=== PATIENT | male | born 1980 ===

== ENCOUNTER 2023-03-07 09:10 | Outpatient (AMB) | payer BC, SELFPAY ==
[2023-03-07 09:13] VITALS: BP 124/74; PULSE 85; RESP 13; TEMP 36.4; O2SAT 99; BMI 33.0
--- NOTE | 2023-03-07 09:13 | A.OFFPC_ITS ---
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 Relocated to [facility] 8 years ago Last office visit/CPE: Several years ago Last blood work: Several years ago Medications: None Acute issue(s): None PMHx: None SurgHx: None FHx: None SocHx: Nonsmoker. Drinks 2-3 beers on weekends. No recreation drug use Patient is Citizen Of [place] speaking only. 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 Cognitive needs: No Hearing needs: No Vision needs: No Questionnaire PHQ-9 Over the last 2 weeks, how often have you been bothered by any of the following problems? 1. Little interest or pleasure in doing things: not at all 2. Feeling down, depressed, or hopeless: not at all 3. Trouble falling or staying asleep, or sleeping too much: not at all 4. Feeling tired or having little energy: not at all 5. Poor appetite or overeating: not at all 6. Feeling bad about yourself - or that you are a failure or have let yourself or your family down: not at all 7. Trouble concentrating on things, such as reading the newspaper or watching television: not at all 8. Moving or speaking so slowly that other people could have noticed. Or the opposite - being so fidgety or restless that you have been moving around a lot more than usual: not at all 9. Thoughts that you would be better off or of hurting yourself in some way: not at all Total score: 0 Depression Screening Interpretation: Negative Depression Screening Done: Yes 02953 - PHQ-9 Billing: Yes Source: Developed by Drs. Stephen Moscoso, Agatha Ibrahim, Lars Mitchell and colleagues, with an educational renita from [employer]. Thrive Questionnaire Date Thrive assessed: 03/07/23 I am a: Patient What is your living situation today?: I have a steady place to live Within the past 12 months, did the food you bought not last and you didn't have the money to get more?: Never true Within the past 12 months, did you worry whether your food would run out before you got money to buy more?: Never true Do you have trouble paying for medicines?: No Do you have trouble getting transportation to medical appointments?: No Do you have trouble paying your heating and electricity bill?: No Do you have trouble taking care of your child, family member or friend?: No Do you have trouble with day-to-day activities such as bathing, preparing meals, shopping, managing finances, etc.?: No Are you currently unemployed and looking for a job?: No Are you interested in more education?: No Please select the resources that you would like help with: None Currently or been in a relationship where the following occur: no concerns reported AUDIT C Alcohol Use Questionnaire (AUDIT-C) 1. How often do you have a drink containing alcohol?: 2-3 times a week 2. How many drinks containing alcohol do you have on a typical day when you are drinking?: 1 or 2 3. How often do you have six or more drinks on one occasion?: Never Total Score: 3 SANDY-7 AMB Questionnaire SANDY-7 Date SANDY - 7 assessed: 03/07/23 Feeling nervous, anxious, or on edge: 0 = Not at all Not being able to stop or control worryin = Not at all Worrying too much about different things: 0 = Not at all Trouble relaxin = Not at all Being so restless that it is hard to sit still: 0 = Not at all Becoming easily annoyed or irritable: 0 = Not at all Feeling afraid as if something awful might happen: 0 = Not at all Total SANDY-7 score (0-4 normal; 5-9 mild; 10-14 moderate; 15-21 severe): 0 Source: Developed by Drs. Stephen Moscoso, Agatha Ibrahim, Lars Mitchell and colleagues, with an educational renita from [employer]. SANDY-7 Assessment Billing SANDY-7 Assessment Tool: SANDY-7 Assessment 31381 Review of Systems Const Details: Denies chills, Denies fatigue, Denies fever(s), Denies headache(s) and Denies weakness HEENT Denies change in vision, Denies dizziness, Denies headache(s), Denies hearing loss, Denies nasal congestion, Denies sinus pain, Denies sinus pressure and Denies sore throat Card Denies chest pain, Denies lightheadedness, Denies dyspnea and Denies other (palpitations) Resp Denies cough, Denies dyspnea and Denies wheezing GI Denies abdominal pain, Denies melena, Denies hematochezia, Denies change in bowel habits, Denies dyspepsia and Denies nausea Denies hematuria and Denies dysuria Musc Denies abnormal gait, Denies myalgias, Denies arthralgias, Denies numbness and Denies tingling Skin/Breast Denies rash, Denies unusual bruising and Denies wounds Neuro Denies abnormal gait, Denies dizziness, Denies headache(s), Denies memory loss, Denies numbness, Denies Sensory deficit (Neuro), Denies tingling and Denies weakness Psych Denies anxiety, Denies depression and Denies memory loss Endo Denies cold intolerance, Denies fatigue, Denies heat intolerance, Denies polydipsia and Denies polyuria Link/Lymph Denies easy bleeding and Denies easy bruising Aller/Immun Denies wheezing Physical exam (Primary Care) Vital Signs: Last Vital Signs Temp 97.6 F 03/07/23 09:13 Pulse 85 03/07/23 09:13 Resp 13 03/07/23 09:13 BP 124/74 03/07/23 09:13 Pulse Ox 99 03/07/23 09:13 Oxygen Delivery Method Room Air 03/07/23 09:13 BMI result Body Mass Index 33.0 Tobacco/Smoking Status: Tobacco use Status Tobacco use date assessed 03/07/23 03/07/23 09:25 Patient Tobacco Use Status Never used Tobacco 03/07/23 09:25 e-Cigarette/Vaping Use Never Used 03/07/23 09:25 PHQ-9: PHQ-9 Score PHQ-9: Total score 0 03/07/23 09:32 Depression Screening Interpretation: Negative Thrive Assessment: Date of Thrive Assessment Date Thrive assessed 03/07/23 03/07/23 09:32 Currently or been in a relationship where the following occur: no concerns reported Const Other: General: no acute distress, well developed, alert and awake Nutritional Appearance: well nourished Orientation/consciousness: patient oriented x3 HENMT Head: Yes normocephalic and Yes atraumatic Ears: hearing grossly normal bilaterally and TM's normal bilaterally General nose exam: Normal external nose present and Normal nares present Mouth: Normal oral and palatal mucosa present and moist mucous membranes Teeth and gingiva: dentition normal Throat: Yes oropharynx normal Eyes Pupils: Equal, round and reactive pupils present and Pupil accommodation reflex normal EOM: EOMs intact bilaterally Neck Neck: Yes normal visual inspection, Yes no lymphadenopathy and Yes trachea midline Thyroid: Thyroid normal Carotids: no bruits Lymphatic: no lymphadenopathy noted Chest Chest palpation & inspection: normal inspection of the chest Resp Effort & Inspection: normal respiratory effort Auscultation: clear to auscultation bilaterally Cardio Rate: regular rate Rhythm: regular rhythm Heart sounds: S1 normal heart sound present, S2 normal heart sound present, no gallops, no murmurs and no rubs Bruits: no abdominal aortic bruits and no carotid bruits GI Palpation (GI): No Abdominal aortic bruit present, Soft to palpation, nontender, No hepatosplenomegaly present and No Rebound tenderness present Auscultation: normal bowel sounds General: Yes no CVA tenderness Back/Spine/Pelvis Back: no CVA tenderness Cervical Spine: cervical ROM normal and No Cervical spine tenderness Thoracic/Lumbar Spine: thoraco-lumbar ROM normal, No pain with thoraco-lumbar ROM, No thoracic spinal tenderness and No lumbar spinal tenderness Skin General: warm and dry. Normal skin color. Normal skin turgor Lesions: no lesions Rashes: no rashes Trauma: no lacerations or abrasions Wounds: no wounds Nails: normal Neuro General: patient oriented x3, gait normal and CN's II-XI intact bilaterally Cranial nerves: Yes Equal, round and reactive pupils present Cognition (Neuro): normal cognition Gait exam (Neuro): Normal gait present Motor exam (neuro): 5/5 motor strength present throughout Sensory Exam: No Sensory deficit (Neuro) Deep tendon reflexes (DTR's): Right patellar reflex intensity grade: 2+ and Left patellar reflex intensity grade: 2+ Extrem General: Yes normal to inspection, No edema and No calf tenderness Psych Appearance: grossly normal Affect: normal affect Attitude: cooperative Thought process: Normal thought process present Assessment and Plan Assessment & Plan (1) Normal physical examination, routine: Code(s): Z00.00 - Encounter for general adult medical examination without abnormal findings Plan: No significant physical restrictions or limitations noted Advised to get lab work done and schedule a telehealth visit for labs review Return with symptoms or concerns Verbalized understanding and agreed with treatment plan (2) Obesity (BMI 30.0-34.9): Code(s): E66.9 - Obesity, unspecified Plan: He weighs 217 lb, BMI is 33.0 Healthy diet and routine exercise encouraged. Advised to avoid processed foods Follow-up with symptoms or concerns Verbalized understanding and agreed with treatment plan (3) Laboratory tests ordered as part of a complete physical exam (CPE): Code(s): Z00.00 - Encounter for general adult medical examination without abnormal findings Plan: Fasting labs ordered as part of a complete physical exam. Advised to fast for at least 10 hours before getting labs drawn. May drink water Verbalized understanding and agreed with treatment plan. Orders: Orders 2 Complete Blood Count Auto Diff Today Z00.00 - Encounter for general adult medical examination without abnormal findings Lipid Panel Today Z00.00 - Encounter for general adult medical examination without abnormal findings Comprehensive [place]. Panel Fast Today Z00.00 - Encounter for general adult medical examination without abnormal findings TSH reflex Free T4 Today Z00.00 - Encounter for general adult medical examination without abnormal findings UA CC w/rflx Micro + Cult Today Z00.00 - Encounter for general adult medical examination without abnormal findings Coding Level of Care Code New Pt Prev Care 40-64y(18766) Diagnoses Normal physical examination, routine Z00.00 Obesity (BMI 30.0-34.9) E66.9 Laboratory tests ordered as part of a complete physical exam (CPE) Z00.00 Additional Codes SANDY-7 Assessment Billing - SANDY-7 Assessment Tool: SANDY-7 Assessment 27846 ([id number])
== END 2023-03-07 10:06 | disposition home or self-care (01) ==
PROVIDERS: PCP Nurse Practitioner Family; Visit Provider Nurse Practitioner Family
DX: Z00.00 Encounter for general adult medical examination without abnormal findings (principal); E66.9 Obesity, unspecified; Z68.33 Body mass index [BMI] 33.0-33.9, adult
CPT/HCPCS: 99386

== ENCOUNTER 2023-03-07 10:08 | Outpatient (REF) | payer BC, SELFPAY ==
[2023-03-07 11:20] LABS: Appearance Urine Clear; Color Urine Yellow; Glucose Urine UA Negative (Negative); Leukocyte Esterase Urine Negative (Negative); Nitrite Urine Negative (Negative); PH 6.5 (5.0-9.0); Specific Gravity - Urine 1.025 (1.005-1.025); Urine Blood Negative (Negative); Urine Ketones Negative (Negative); Urine Protein Negative (Neg-Trace)
[2023-03-07 11:21] LABS: MANUAL DIFF FLAG NO
[2023-03-07 11:30] LABS: Basophils Absolute Auto 0.1 X10*3/uL (0.0-0.2); Basophils Percent Auto 0.5 % (0-2); Eosinophils Absolute Auto 0.1 X10*3/uL (0.0-0.4); Eosinophils Percent Auto 1.4 % (0-4); Hematocrit 45.4 % (42.0-52.0); Hemoglobin 15.3 g/dl (14.0-18.0); Imm Gran Abs Auto 0.03 X10*3/uL (0.00-0.03); Imm Gran Pct Auto 0.3 % (0.0-0.4); Mean Corpuscular HGB Conc 33.7 g/dl (31.0-36.0); Mean Corpuscular Hemoglobin 29.7 pg (27.0-33.0); Mean Corpuscular Volume 88.2 fL (80.0-98.0); Mean Platelet Volume 9.9 fL (9.4-12.4); Monocytes Absolute Auto 0.6 X10*3/uL (0.1-1.2); Monocytes Percent Auto 6.3 % (2-11); Neutrophils Absolute Auto 6.4 x10*3/uL (2.0-8.3); Neutrophils Percent Auto 69.5 % (45-73); Platelet Count 339 X10*3/uL (160-400); Red Blood Count 5.15 X10*6/uL (4.60-5.80); Red Cell Distribution Width 13.5 % (11.0-16.0); White Blood Count 9.2 X10*3/uL (4.8-10.8)
[2023-03-07 12:06] LABS: Alanine Aminotransferase 28 U/L (0-40); Albumin Level 4.4 g/dL (3.5-5.0); Alkaline Phosphatase 61 U/L (39-117); Anion Gap 10 (12-20); Aspartate Amino Transferase 21 U/L (5-37); Bilirubin Total 0.5 mg/dL (0.0-1.0); Blood Urea Nitrogen 14 mg/dL (9-16); Calcium 9.6 mg/dL (8.4-10.2); Carbon Dioxide 28 mmol/L (22-29); Chloride 104 mmol/L (96-108); Cholesterol 210 mg/dL (<200); Estimated Glomerular Filt Rate > 60; Glucose Fasting 89 mg/dL (60-99); HDL Cholesterol 47 mg/dL (>40); LDL Cholesterol Calculated 149 mg/dL (<100); Potassium 4.4 mmol/L (3.3-5.1); Sodium 138 mmol/L (135-145); Total Protein 8.3 g/dL (6.5-8.0); Triglycerides 72 mg/dL (<150)
[2023-03-07 12:22] LABS: TSH reflex Free T4 1.54 uIU/mL (0.32-4.0)
== END 2023-03-07 10:09 | disposition home or self-care (01) ==
LOC: HO.WFDLDS 10:08
PROVIDERS: Visit Provider Nurse Practitioner Family
DX: Z00.00 Encounter for general adult medical examination without abnormal findings (principal)
CPT/HCPCS: 36415; 80053; 80061; 81003; 84443; 85025

== ENCOUNTER 2024-01-12 14:50 | Outpatient (AMB) | payer OTHER, SELFPAY ==
--- NOTE | 2024-01-12 14:55 | A.OFFPC_ITS ---
Vital Signs 01/12/24 14:58 Height 5 ft 8 in Weight 215 lb 8 oz BMI 32.8 BP 108/68 Blood Pressure Location Rt brachial Position Sitting Respiration 16 Pulse 78 Pulse Source Pulse Oximeter Temp 98.2 F Temp Source Oral Pulse Oximetry (%) 97 Oxygen Delivery Method Room Air Intake Visit Reasons: Resched from 01/08: Stomach pain Intake Note: patient here c/o stomach pain Companion Caregiver Required: No Allergies No Known Allergies Allergy (Verified 01/12/24 15:12) Medication List - Last Reconciled 01/12/24 by Cindy Leiva CNP No Known Home Meds Tobacco use date assessed: 01/12/24 Dental Screening Dental Screen Date: 01/12/24 Did you have a dental visit in the last 12 months?: No Did you have a dental problem in the last 6 months where you did not have access to dental care?: No Was dental information given to patient?: Yes HPI HPI Comments History of Present Illness Details 43-year-old [place]-speaking male presen nicol with complaints of epigastric pain for the past 8 days. He is unable to described the pain. No associated symptoms. He has tried Pepto-Bismol with significant relief. He notes that drink water, eating more vegetables, and drinking less alcohol provides relief. He drinks 3-4 beers on Saturdays and Sundays. Food does not increase his pain. He denies consuming fried or greasy food. No changes in bowel habits. No symptoms at this time. Interpretation by professional label designer. 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 Cognitive needs: No Hearing needs: No Vision needs: No Questionnaire PHQ-9 Over the last 2 weeks, how often have you been bothered by any of the following problems? 1. Little interest or pleasure in doing things: not at all 2. Feeling down, depressed, or hopeless: not at all 3. Trouble falling or staying asleep, or sleeping too much: not at all 4. Feeling tired or having little energy: not at all 5. Poor appetite or overeating: not at all 6. Feeling bad about yourself - or that you are a failure or have let yourself or your family down: not at all 7. Trouble concentrating on things, such as reading the newspaper or watching television: not at all 8. Moving or speaking so slowly that other people could have noticed. Or the opposite - being so fidgety or restless that you have been moving around a lot more than usual: not at all 9. Thoughts that you would be better off or of hurting yourself in some way: not at all Total score: 0 Source: Developed by Drs. Stephen Moscoso, Agatha Ibrahim, Lars Mitchell and colleagues, with an educational renita from [employer]. Thrive Questionnaire Date Thrive assessed: 01/08/24 I am a: Patient What is your living situation today?: I have a steady place to live Within the past 12 months, did the food you bought not last and you didn't have the money to get more?: I choose not to answer this question Within the past 12 months, did you worry whether your food would run out before you got money to buy more?: Never true Do you have trouble paying for medicines?: No Do you have trouble getting transportation to medical appointments?: No Do you have trouble paying your heating and electricity bill?: No Do you have trouble taking care of your child, family member or friend?: No Do you have trouble with day-to-day activities such as bathing, preparing meals, shopping, managing finances, etc.?: No Are you currently unemployed and looking for a job?: No Are you interested in more education?: Yes Please select the resources that you would like help with: None Currently or been in a relationship where the following occur: No concerns reported THRIVE Score: 0 SANDY-7 AMB Questionnaire SANDY-7 Date SANDY - 7 assessed: 03/07/23 Source: Developed by Drs. Stephen Moscoso, Agatha Ibrahim, Lars Mitchell and colleagues, with an educational renita from [employer]. Review of Systems Const Details: Const Denies chills, Denies fatigue, Denies fever(s), Denies headache(s) and Denies weakness ENT Denies dizziness and Denies headache(s) Card Denies chest pain, Denies lightheadedness, Denies dyspnea and Denies other (Palpitations) Resp Denies cough, Denies dyspnea, Denies wheezing and Denies other ( shortness of breath) GI Reports as per HPI Denies hematuria and Denies dysuria Musc Denies abnormal gait, Denies myalgias, Denies arthralgias, Denies numbness and Denies tingling Skin/Breast Denies rash, Denies unusual bruising and Denies wounds Neuro Denies abnormal gait, Denies dizziness, Denies headache(s), Denies memory loss, Denies numbness, Denies Sensory deficit (Neuro), Denies tingling and Denies weakness Psych Denies anxiety, Denies depression, Denies memory loss Endo Denies cold intolerance, Denies fatigue, Denies heat intolerance, Denies polydipsia and Denies polyuria Aller/Immun Denies wheezing Physical exam (Primary Care) Tobacco/Smoking Status: Tobacco use Status Tobacco use date assessed 03/07/23 03/07/23 09:25 Patient Tobacco Use Status Never used Tobacco 03/07/23 09:25 e-Cigarette/Vaping Use Never Used 03/07/23 09:25 Thrive Assessment: Date of Thrive Assessment Date Thrive assessed 01/08/24 01/09/24 08:52 Currently or been in a relationship where the following occur: No concerns reported Const Other: General: no acute distress and well developed Nutritional Appearance: well nourished Orientation/consciousness: patient oriented x3 HENMT Head: Yes normocephalic and Yes atraumatic Eyes General: appearance normal, both eyes and all related structures Pupils: Equal, round and reactive pupils present EOM: EOMs intact bilaterally Resp Effort & Inspection: normal respiratory effort Auscultation: clear to auscultation bilaterally Cardio Rate: regular rate Rhythm: regular rhythm Heart sounds: S1 normal heart sound present, S2 normal heart sound present, no gallops, no murmurs and no rubs GI Palpation (GI): No Abdominal aortic bruit present, Soft to palpation, nontender, No hepatosplenomegaly present and No Rebound tenderness present Auscultation: normal bowel sounds General: Yes no CVA tenderness Back/Spine/Pelvis Back: no CVA tenderness Extrem General: Yes normal to inspection, No edema and No calf tenderness Skin General: warm and dry. Normal skin color. Normal skin turgor Neuro General: patient oriented x3, gait normal and no focal neuro deficit Cranial nerves: Yes Equal, round and reactive pupils present Cognition (Neuro): normal cognition Gait exam (Neuro): Normal gait present Sensory Exam: No Sensory deficit (Neuro) Psych Appearance: grossly normal Affect: normal affect Attitude: cooperative Thought process: Normal thought process present Coding Level of Care Code Est Pt Level 3 (56437) Diagnoses GERD (gastroesophageal reflux disease) K21.9 Laboratory tests ordered as part of a complete physical exam (CPE) Z00.00 Assessment & Plan Assessment & Plan (1) GERD (gastroesophageal reflux disease): Code(s): K21.9 - Gastro-esophageal reflux disease without esophagitis Category: Medical Plan: Reports intermittent epigastric pain x8 days, responsive to Pepto-Bismol. Improves with eating vegetables, increasing water intake, and limiting alcohol consumption. No associated symptoms. No acute symptoms at this time. Will order omeprazole 20 mg daily. Advised to take as prescribed. Instructed on the risks, benefits, and potential adverse reactions of the medication. Advised to follow- up for an extended physical exam in 2 months or return sooner with worsening or new symptoms. Verbalized understanding and agreed with treatment plan. (2) Laboratory tests ordered as part of a complete physical exam (CPE): Code(s): Z00.00 - Encounter for general adult medical examination without abnormal findings Category: Medical Plan: Fasting labs ordered as part of a complete physical exam. Advised to fast for at least 10 hours before getting labs drawn. May drink water Verbalized understanding and agreed with treatment plan. Orders: Orders Lipid Panel Today Z00.00 - Encounter for general adult medical examination without abnormal findings TSH reflex Free T4 Today Z00.00 - Encounter for general adult medical examination without abnormal findings UA CC w/rflx Micro + Cult Today Z00.00 - Encounter for general adult medical examination without abnormal findings Complete Blood Count Auto Diff Today Z00.00 - Encounter for general adult medical examination without abnormal findings Comprehensive [place]. Panel Fast Today Z00.00 - Encounter for general adult medical examination without abnormal findings Microalbumin, Random (w Creat) Today Z00.00 - Encounter for general adult medical examination without abnormal findings Medications: New omeprazole 20 mg PO DAILY 30 days 30 caps 2RF
[2024-01-12 14:58] VITALS: BP 108/68; PULSE 78; RESP 16; TEMP 36.8; O2SAT 97; BMI 32.8
== END 2024-01-12 15:33 | disposition home or self-care (01) ==
PROVIDERS: PCP Nurse Practitioner Family; Visit Provider Nurse Practitioner Family
DX: K21.9 Gastro-esophageal reflux disease without esophagitis (principal); Z00.00 Encounter for general adult medical examination without abnormal findings

== ENCOUNTER → 2024-01-12 14:50 | Outpatient (BNVA) | payer OTHER, SELFPAY | PROVIDERS: PCP Nurse Practitioner Family; Visit Provider Nurse Practitioner Family ==

== ENCOUNTER 2024-02-06 01:35 | Observation (INO) | payer OTHER, SELFPAY ==
[2024-02-06] VITALS (7 sets, daily range): BP systolic 108–126; BP diastolic 58–86; PULSE 71–88; RESP 14–18; TEMP 36.4–36.9; O2SAT 96–100; BMI 31.9; BMI 32.0
--- NOTE | ~2024-02-06 | CT_ITS ---
EXAMINATION: CT ABDOMEN AND PELVIS WITH CONTRAST CLINICAL INFORMATION: Right upper quadrant and lower quadrant pain. COMPARISON: None available. TECHNIQUE: Multidetector volumetric images were obtained from the superior aspect of the liver through the pubic symphysis following administration 85 mL of Omnipaque 350 intravenous contrast without reported immediate complications. Sagittal and coronal reformatted images were obtained on the technologist's workstation. Oral contrast: No This CT examination was performed using dose optimization techniques as appropriate, variously including the following: *Automated exposure control *Adjustment of mA and/or kV according to patient size (this includes techniques or standardized protocols for targeted exams where dose is matched to indication/reason for exam; i.e. extremities or head) *Use of iterative reconstruction technique DLP: 733 mGy-cm FINDINGS: LUNG BASES: Subsegmental atelectasis, lung bases. LIVER, GALLBLADDER, AND BILIARY TREE: Liver measures 15 cm. No focal mass. Portal vein and hepatic veins are patent. Intrahepatic portion of the IVC is patent. An edematous gallbladder wall and mucosal enhancement. No discrete calcification. Common bile duct measures 6 mm. PANCREAS: No focal mass. No peripancreatic fluid collection. No main pancreatic ductal dilatation. SPLEEN: 11 cm. No focal mass. ADRENAL GLANDS: No nodular lesions. KIDNEYS AND URETERS: Subcentimeter low density in the midportion/upper pole left kidney. No enhancing renal mass. No hydronephrosis. Subcentimeter hypodensity in the upper pole right kidney.. BLADDER: Fluid-filled. GASTROINTESTINAL TRACT: Abundant stool, large intestine. No intestinal obstruction pattern. Collapsed splenic colonic flexure versus peristalsis. Appendix is normal. No ascites. No pneumoperitoneum. No pneumatosis intestinalis. ABDOMINAL WALL: Small fat-containing umbilical hernia. LYMPH NODES: No lymphadenopathy. VASCULAR: No aneurysm or dissection, abdominal aorta. PELVIC VISCERA: Prostate gland and seminal vesicles are not enlarged. OSSEOUS STRUCTURES: Multilevel spondylosis without acute fracture or listhesis. No lytic or blastic lesions. CT/CT abdomen pelvis w IV con IMPRESSION: Concerning acute cholecystitis in the correct clinical settings. Fleischner guidelines were followed. Electronically signed by: Yevgeniy Pedro MD 02/06/2024 10:10 AM [facility]
--- NOTE | ~2024-02-06 | US_ITS ---
EXAMINATION: US ABDOMEN LIMITED CLINICAL INFORMATION: Right upper quadrant pain. COMPARISON: CT abdomen/pelvis done earlier the same day. TECHNIQUE: Real-time imaging of the right upper quadrant abdominal viscera. FINDINGS: PANCREAS: Unremarkable. LIVER: The liver is normal in size. The liver contour is normal. Increased hepatic parenchymal echogenicity which can be seen in the setting of steatosis. No focal hepatic lesion. There is no intrahepatic biliary duct dilatation seen. GALLBLADDER: Cholelithiasis. Gallbladder wall thickening with trace pericholecystic free fluid. Findings are consistent with acute cholecystitis. COMMON BILE DUCT: Normal in caliber measuring 0.4 cm in diameter. RIGHT KIDNEY: Normal. No hydronephrosis. No renal calculi or focal parenchymal lesions. The kidney measures 10.9 cm in maximum dimension. FREE FLUID: None. US/US abdomen limited IMPRESSION: Cholelithiasis with gallbladder wall thickening and trace pericholecystic free fluid, consistent with acute cholecystitis. Electronically signed by: Jaden Segura MD 02/06/2024 12:52 PM [facility]
[2024-02-06 01:56] LABS: MANUAL DIFF FLAG NO
[2024-02-06 02:13] LABS: Alanine Aminotransferase 32 U/L (0-40); Albumin Level 4.2 g/dL (3.5-5.0); Alkaline Phosphatase 62 U/L (39-117); Anion Gap 14 (12-20); Aspartate Amino Transferase 26 U/L (5-37); Bilirubin Total 0.3 mg/dL (0.0-1.0); Blood Urea Nitrogen 18 mg/dL (9-16); Calcium 9.6 mg/dL (8.4-10.2); Carbon Dioxide 24 mmol/L (22-29); Chloride 104 mmol/L (96-108); Creatinine Clr Calc Pharmacy 122.4; Estimated Glomerular Filt Rate > 60; Glucose Random 155 mg/dL (60-115); Lipase 15 U/L (8-78); Potassium 3.6 mmol/L (3.3-5.1); Sodium 138 mmol/L (135-145); Total Protein 7.4 g/dL (6.5-8.0)
[2024-02-06 02:15] LABS: Basophils Absolute Auto 0.1 X10*3/uL (0.0-0.2); Basophils Percent Auto 0.3 % (0-2); Eosinophils Absolute Auto 0.1 X10*3/uL (0.0-0.4); Eosinophils Percent Auto 0.7 % (0-4); Hematocrit 43.2 % (42.0-52.0); Hemoglobin 14.9 g/dl (14.0-18.0); Imm Gran Abs Auto 0.05 X10*3/uL (0.00-0.03); Imm Gran Pct Auto 0.3 % (0.0-0.4); Lymphocytes Absolute Auto 1.3 X10*3/uL (1.2-4.9); Lymphocytes Percent Auto 8.8 % (20-40); Mean Corpuscular HGB Conc 34.5 g/dl (31.0-36.0); Mean Corpuscular Hemoglobin 29.7 pg (27.0-33.0); Mean Corpuscular Volume 86.2 fL (80.0-98.0); Monocytes Absolute Auto 0.6 X10*3/uL (0.1-1.2); Monocytes Percent Auto 3.9 % (2-11); Neutrophils Absolute Auto 13.1 x10*3/uL (2.0-8.3); Platelet Count 255 X10*3/uL (160-400); Red Blood Count 5.01 X10*6/uL (4.60-5.80); White Blood Count 15.2 X10*3/uL (4.8-10.8)
[2024-02-06 05:23] LABS: Appearance Urine Clear; Color Urine Yellow; Glucose Urine UA Negative (Negative); Leukocyte Esterase Urine Negative (Negative); Nitrite Urine Negative (Negative); Specific Gravity - Urine 1.015 (1.005-1.025); Urine Blood Negative (Negative); Urine Ketones Negative (Negative); Urine Protein Negative (Neg-Trace)
[2024-02-06 05:26] LABS: Bacteria Urine None Seen (None Seen); Hyaline Casts Urine 0-2 /LPF (0-2); RBC Urine 0-2 /HPF (0-2); Squamous Epithelial Cell Urine 0-2 /HPF (0-2); WBC Urine 0-5 /HPF (0-5)
--- NOTE | 2024-02-06 07:14 | ED.GENADULT ---
HPI - General Adult General Chief complaint: Abdominal Pain Stated complaint: abdominal pain Time Seen by Provider: 02/06/24 06:49 Source: patient Mode of arrival: ambulatory Limitations: no limitations History of Present Illness ED Provider: NATHALY Chaudhry HPI narrative: 43 year old male hx of obesity, gerd, presents with epigastric/right upper quadrant pain ongoing for 10 hours. He has been getting episodes like these few times over the past month. He reports it is worse with eating greasy, spicy foods. Nothing seems to make it better. He reports when he gets the pain it is 10/10, burning/sharp, makes him bend over and hold his abdomen. He reports it has been happening more frequently recently. He reports right now pain is 10/10. He denies sick contacts. Denies fevers, chills, nausea, vomiting, diarrhea, headache, vision changes, cough, chest pain, shortness of breath Related Data Previous Rx's ?Medication ?Instructions ?Recorded omeprazole 20 mg capsule,delayed 20 mg PO DAILY 30 days #30 caps 01/12/24 release Allergies Allergy/AdvReac Type Severity Reaction Status Date / Time No Known Allergies Allergy Verified 02/06/24 01:38 Review of Systems Review of Systems: Yes all other systems are reviewed and are negative [facility] Past Medical History Attestation statement: The following information was validated with the patient. 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 Cognitive needs: No Hearing needs: No Vision needs: No Physical Exam ED Vital Signs: Vital Signs - 24 hr 02/06/24 01:36 02/06/24 04:09 11/15/24 06:28 Temperature 97.9 F 98.1 F 97.9 F Pulse Rate 79 79 88 Respiratory Rate 18 16 16 Blood Pressure 126/58 L 113/71 111/65 Pulse Oximetry 100 96 97 Oxygen Delivery Method Room Air Room Air Room Air 02/06/24 07:51 02/06/24 10:03 Temperature 97.7 F 97.7 F Pulse Rate 87 71 Respiratory Rate 18 16 Blood Pressure 112/69 108/67 Pulse Oximetry 96 98 Oxygen Delivery Method Room Air Room Air BMI result Body Mass Index 31.9 vss Appearance: Alert.? Oriented X3.? No acute distress.? Head: Normocephalic, atraumatic, no step-offs or deformities Eyes: Pupils equal, round and reactive to light.? CVS: Normal heart rate and rhythm.? Pulses normal.? Respiratory: No respiratory distress.? Breath sounds normal.? Abdomen: Soft + mild tenderness in the epigastric region and RUQ negative Grant sign. Skin: Skin warm and dry.? Normal skin color.? Normal skin turgor.? Extremities: No lower extremity edema.? No calf ttp. 5/5 strength to bilateral upper and lower extremities Back: No midline tenderness, no C-spine tenderness, full range of motion, no CVA tenderness bilaterally Neuro: Oriented X 3.? No motor deficit.? No sensory deficit. CN 2-12 intact Course Reevaluation(s) Reevaluation #1: Patient's CBC with slight white count with a shift could be reactive. Chemistry no acute findings needing intervention. UA no infection. CT abdomen and pelvis pending at this time. Time: 07:52 Reevaluation #2: Patient feeling a lot better after GI cocktail. CT abdomen pending. Time: 09:48 Reevaluation #3: CT abdomen showing acute cholecystitis. Will reach out to surgery at this time. NPO at this time Time: 10:06 Additional Reevaluation(s): Patient seen by General surgery Dr. Vargas. Who recommends giving patient overnight for observation and obtaining an ultrasound of right upper quadrant Medications Administered Discontinued Medications Generic Name Dose Route Start Last Admin Trade Name Freq PRN Reason Stop Dose Admin Al Hydroxide/Mg Hydroxide 15 ml 02/06/24 07:00 02/06/24 07:21 Magnesium Hydrox/Alum Hydrox 30 Ml Oral.Susp PO 02/06/24 07:01 15 ml ONCE ONE Administration Belladonna Alkaloids/Phenobarbital 10 ml 02/06/24 07:00 02/06/24 07:21 Phenobarb/Hyoscy/Atropine/Scop 10 Ml Elixir PO 02/06/24 07:01 10 ml ONCE ONE Administration Ceftriaxone Sodium 1 gm 02/06/24 10:03 02/06/24 10:36 Ceftriaxone Sodium 1 Gm Vial IVPUSH 02/06/24 10:04 1 gm ONCE ONE Administration Iohexol 100 ml 02/06/24 09:45 02/06/24 09:45 Iohexol 350 Mg/Ml 100 Ml Infus..Btl IV 02/06/24 09:46 85 ml ONCE ONE Administration Medical Decision Making Medical Decision Making [facility] Narrative: 0716 43 year old male presents with epigastric abdominal pain X 10-12 hours PE mild tenderness in the epigastric region and RUQ negative Grant sign. Hx and pe concerning for gastritis, GERD vs cholecystitis. Less likely cholangitis, choledocolithiasis, AAA, dissection, acute abdomen. Plan- labs, imaging, urine Differential Diagnosis Differential Diagnoses: The differential diagnosis associated with the presentation includes (Hx and pe concerning for gastritis, GERD vs cholecystitis. Less likely cholangitis, choledocolithiasis, AAA, dissection, acute abdomen.) Admission/Observation Consideration of admission/observation: Escalation of care including admission/observation considered Lab Data 02/06/24 01:53 02/06/24 01:53 Labs: Lab Results 02/06/24 02/06/24 Range/Units 01:53 05:18 WBC 15.2 H (4.8-10.8) X10*3/uL RBC 5.01 (4.60-5.80) X10*6/uL Hgb 14.9 (14.0-18.0) g/dl Hct 43.2 (42.0-52.0) % MCV 86.2 (80.0-98.0) fL MCH 29.7 (27.0-33.0) pg MCHC 34.5 (31.0-36.0) g/dl RDW 13.0 (11.0-16.0) % Plt Count 255 (160-400) X10*3/uL MPV 10.0 (9.4-12.4) fL Immature Gran % (Auto) 0.3 (0.0-0.4) % Neut % (Auto) 86.0 H (45-73) % Lymph % (Auto) 8.8 L (20-40) % [place] % (Auto) 3.9 (2-11) % Eos % (Auto) 0.7 (0-4) % Baso % (Auto) 0.3 (0-2) % Lymph # (Auto) 1.3 (1.2-4.9) X10*3/uL [place] # (Auto) 0.6 (0.1-1.2) X10*3/uL Eos # (Auto) 0.1 (0.0-0.4) X10*3/uL Baso # (Auto) 0.1 (0.0-0.2) X10*3/uL Abs Immat Gran (auto) 0.05 H (0.00-0.03) X10*3/uL Absolute Neuts (auto) 13.1 H (2.0-8.3) x10*3/uL Absolute Nucleated RBC 0.000 (0.0-0.012) X10*3/uL Nucleated RBC % (auto) 0.0 (0.0-0.2) /100WBC Sodium 138 (135-145) mmol/L Potassium 3.6 (3.3-5.1) mmol/L Chloride 104 (96-108) mmol/L Carbon Dioxide 24 (22-29) mmol/L Anion Gap 14 (12-20) BUN 18 H (9-16) mg/dL Creatinine 0.88 (0.5-1.4) mg/dL Estim Creat Clear Calc 122.4 Estimated GFR > 60 Random Glucose 155 H (60-115) mg/dL Calcium 9.6 (8.4-10.2) mg/dL Total Bilirubin 0.3 (0.0-1.0) mg/dL AST 26 (5-37) U/L ALT 32 (0-40) U/L Alkaline Phosphatase 62 (39-117) U/L Total Protein 7.4 (6.5-8.0) g/dL Albumin 4.2 (3.5-5.0) g/dL Lipase 15 (8-78) U/L Urine Color Yellow Urine Appearance Clear Urine pH 7.0 (5.0-9.0) Ur Specific [place] 1.015 (1.005-1.025) Urine Protein Negative (Neg-Trace) mg/dL Urine Glucose (UA) Negative (Negative) mg/dL Urine Ketones Negative (Negative) mg/dL Urine Blood Negative (Negative) Urine Nitrite Negative (Negative) Ur Leukocyte Esterase Negative (Negative) Urine RBC 0-2 (0-2) /HPF Urine WBC 0-5 (0-5) /HPF Ur Squamous Epith Cells 0-2 (0-2) /HPF Urine Bacteria None Seen (None Seen) Hyaline Casts 0-2 (0-2) /LPF Critical Care Time Critical Care Time Critical Care Time: Yes Total Critical Care Time: 35 Attestation: I attest to this time spent taking care of the patient, obtaining history, physical, reviewing labs, imaging, treatment of patients condition +/- specialist/hospitalist consult Discharge Plan Discharge Clinical Impression: Gastritis, Acute cholecystitis Patient Disposition: Still a Patient Additional Instructions: Take your medications as prescribed. If you were prescribed antibiotics today, it is important that you take your medication to their entirety, do not skip any doses, do not finish them early. Follow-up with your primary care provider this week. Return to the emergency department with new or worsening symptoms. Such as fevers, chills, chest pain, shortness of breath, nausea, vomiting, dizziness, headache, vision changes, lethargy In case of emergency call 911 Prescriptions: No Action omeprazole 20 mg capsule,delayed release(DR/EC) 20 mg PO DAILY 30 Days Qty: 30 2RF Referrals: [facility] [Provider Group] - 3 days Cindy Leiva CNP [Primary Care Provider] - 2 days Stand Alone Forms: Work/School Release Print Language: Hungarian
[2024-02-06] MEDS: PHENobarb/Hyoscy/Atropine/Scop 10 ML ELIXIR PO (07:21)
[2024-02-06] MEDS: Magnesium Hydrox/Alum Hydrox 30 ML ORAL.SUSP 15 ML PO (07:21)
[2024-02-06] MEDS: iohexoL 350 MG/ML 100 ML INFUS..BTL IV (09:45)
[2024-02-06] MEDS: cefTRIAXone sodium 1 GM VIAL IVPUSH (10:36)
--- NOTE | 2024-02-06 10:47 | P.HPGS_ITS ---
History of Present Illness History of Present Illness Date of Service: 02/07/24 Chief complaint: epigastric pain ? cholecystitis Narrative: Bacilio Quach is a 43 year old male the ER for epigastric pain. He says that this started last night around 10:00 o'clock. He says that this is only in the epigastric area and not on the right upper quadrant. He denies any nausea or vomiting. He denies any fever or chills He says that this morning as soon as he got to the ER, his pain subsided. He says that this resolved completely after she got Maalox. He says he currently does not have any abdominal pain. He says he currently feels well. Review of Systems Constitutional: Constitutional: Denies chills and Denies fever(s) Cardiovascular: Cardiovascular: Denies chest pain, Denies dyspnea and Denies dyspnea on exertion Respiratory: Respiratory: Denies cough, Denies dyspnea and Denies dyspnea on exertion Gastrointestinal: Gastrointestinal: Denies hematochezia and Denies change in bowel habits Genitourinary: Genitourinary: Denies hematuria and Denies difficulty urinating Musculoskeletal: Musculoskeletal: Denies back pain and Denies limited range of motion Neurologic: Denies focal weakness and Denies convulsions Psychiatric: Psychiatric: Denies depression and Denies mood swings PMFSH Past Medical History Medical History (Updated 02/06/24 @ 10:51 by Doug Vargas MD) Morbid obesity Epigastric pain No pertinent past medical history Surgical History Surgical History No pertinent past surgical history Social History Social History Household Members: Spouse and Family Housing: House Patient Tobacco Use Status: Never used Tobacco e-Cigarette/Vaping Use: Never Used service: No Current occupational status: employed 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 Cognitive needs: No Hearing needs: No Vision needs: No Meds Allergies Allergy/AdvReac Type Severity Reaction Status Date / Time No Known Allergies Allergy Verified 02/06/24 01:38 Physical Exam Vital Signs: Vital Signs: Last Vital Signs Temp 97.7 F 02/06/24 10:03 Pulse 71 02/06/24 10:03 Resp 16 02/06/24 10:03 BP 108/67 02/06/24 10:03 Pulse Ox 98 02/06/24 10:03 O2 Del Method Room Air 02/06/24 10:03 BMI result Body Mass Index 31.9 Const: General: comfortable and no acute distress Nutritional Appearance: obese Orientation/consciousness: patient oriented x3 Neck: Neck: Yes no lymphadenopathy Resp: Auscultation: clear to auscultation bilaterally Cardio: Rhythm: regular rhythm GI: Other: No tenderness no Grant's sign Palpation (GI): Soft to palpation, nontender and no guarding Neuro: General: patient oriented x3 Results Results Labs: Short CBC 02/06/24 Range/Units 01:53 WBC 15.2 H (4.8-10.8) X10*3/uL Hgb 14.9 (14.0-18.0) g/dl Hct 43.2 (42.0-52.0) % Plt Count 255 (160-400) X10*3/uL BMP 02/06/24 01:53 Sodium 138 Potassium 3.6 Chloride 104 Carbon Dioxide 24 BUN 18 H Creatinine 0.88 Calcium 9.6 Liver Function 02/06/24 Range/Units 01:53 Total Bilirubin 0.3 (0.0-1.0) mg/dL AST 26 (5-37) U/L ALT 32 (0-40) U/L Alkaline Phosphatase 62 (39-117) U/L Albumin 4.2 (3.5-5.0) g/dL Urine 02/06/24 Range/Units 05:18 Urine Color Yellow Urine Appearance Clear Urine pH 7.0 (5.0-9.0) Ur Specific [place] 1.015 (1.005-1.025) Urine Protein Negative (Neg-Trace) mg/dL Urine Glucose (UA) Negative (Negative) mg/dL Abdomen CT scan report/results: report reviewed and image reviewed CT scan - pelvis: report reviewed and image reviewed Additional studies: Laboratory Results WBC 15.2 X10*3/uL (4.8-10.8) H 02/06/24 01:53 RBC 5.01 X10*6/uL (4.60-5.80) 02/06/24 01:53 Hgb 14.9 g/dl (14.0-18.0) 02/06/24 01:53 Hct 43.2 % (42.0-52.0) 02/06/24 01:53 MCV 86.2 fL (80.0-98.0) 02/06/24 01:53 MCH 29.7 pg (27.0-33.0) 02/06/24 01:53 MCHC 34.5 g/dl (31.0-36.0) 02/06/24 01:53 RDW 13.0 % (11.0-16.0) 02/06/24 01:53 Plt Count 255 X10*3/uL (160-400) 02/06/24 01:53 MPV 10.0 fL (9.4-12.4) 02/06/24 01:53 Immature Gran % (Auto) 0.3 % (0.0-0.4) 02/06/24 01:53 Neut % (Auto) 86.0 % (45-73) H 02/06/24 01:53 Lymph % (Auto) 8.8 % (20-40) L 02/06/24 01:53 [place] % (Auto) 3.9 % (2-11) 02/06/24 01:53 Eos % (Auto) 0.7 % (0-4) 02/06/24 01:53 Baso % (Auto) 0.3 % (0-2) 02/06/24 01:53 Lymph # (Auto) 1.3 X10*3/uL (1.2-4.9) 02/06/24 01:53 [place] # (Auto) 0.6 X10*3/uL (0.1-1.2) 02/06/24 01:53 Eos # (Auto) 0.1 X10*3/uL (0.0-0.4) 02/06/24 01:53 Baso # (Auto) 0.1 X10*3/uL (0.0-0.2) 02/06/24 01:53 Abs Immat Gran (auto) 0.05 X10*3/uL (0.00-0.03) H 02/06/24 01:53 Absolute Neuts (auto) 13.1 x10*3/uL (2.0-8.3) H 02/06/24 01:53 Absolute Nucleated RBC 0.000 X10*3/uL (0.0-0.012) 02/06/24 01:53 Nucleated RBC % (auto) 0.0 /100WBC (0.0-0.2) 02/06/24 01:53 Sodium 138 mmol/L (135-145) 02/06/24 01:53 Potassium 3.6 mmol/L (3.3-5.1) 02/06/24 01:53 Chloride 104 mmol/L (96-108) 02/06/24 01:53 Carbon Dioxide 24 mmol/L (22-29) 02/06/24 01:53 Anion Gap 14 (12-20) 02/06/24 01:53 BUN 18 mg/dL (9-16) H 02/06/24 01:53 Creatinine 0.88 mg/dL (0.5-1.4) 02/06/24 01:53 Estim Creat Clear Calc 122.4 02/06/24 01:53 Estimated GFR > 60 02/06/24 01:53 Random Glucose 155 mg/dL (60-115) H 02/06/24 01:53 Calcium 9.6 mg/dL (8.4-10.2) 02/06/24 01:53 Total Bilirubin 0.3 mg/dL (0.0-1.0) 02/06/24 01:53 AST 26 U/L (5-37) 02/06/24 01:53 ALT 32 U/L (0-40) 02/06/24 01:53 Alkaline Phosphatase 62 U/L (39-117) 02/06/24 01:53 Total Protein 7.4 g/dL (6.5-8.0) 02/06/24 01:53 Albumin 4.2 g/dL (3.5-5.0) 02/06/24 01:53 Lipase 15 U/L (8-78) 02/06/24 01:53 Urine Color Yellow 02/06/24 05:18 Urine Appearance Clear 02/06/24 05:18 Urine pH 7.0 (5.0-9.0) 02/06/24 05:18 Ur Specific [place] 1.015 (1.005-1.025) 02/06/24 05:18 Urine Protein Negative mg/dL (Neg-Trace) 02/06/24 05:18 Urine Glucose (UA) Negative mg/dL (Negative) 02/06/24 05:18 Urine Ketones Negative mg/dL (Negative) 02/06/24 05:18 Urine Blood Negative (Negative) 02/06/24 05:18 Urine Nitrite Negative (Negative) 02/06/24 05:18 Ur Leukocyte Esterase Negative (Negative) 02/06/24 05:18 Urine RBC 0-2 /HPF (0-2) 02/06/24 05:18 Urine WBC 0-5 /HPF (0-5) 02/06/24 05:18 Ur Squamous Epith Cells 0-2 /HPF (0-2) 02/06/24 05:18 Urine Bacteria None Seen (None Seen) 02/06/24 05:18 Hyaline Casts 0-2 /LPF (0-2) 02/06/24 05:18 Impressions Abdomen/Pelvis CT 02/06/24 06:57 IMPRESSION: Concerning acute cholecystitis in the correct clinical settings. Fleischner guidelines were followed. Electronically signed by: Yevgeniy Pedro MD 02/06/2024 10:10 AM [facility] Assessment and Plan (1) Epigastric pain: Status: Acute 43-year-old male who came in last night for epigastric pain. He he had a CAT scan here in the ER which shows gallbladder wall edema. There are no gallstones seen. He actually does not have any pain or tenderness at this time. He has not gotten any pain medications in the ER. He says that he got Maalox earlier and his pain resolved completely He does have some leukocytosis so we will with admit him for observation. He does not want to proceed with any surgical intervention as he says that his pain has completely resolved He otherwise looks hemodynamically staple and is comfortable. Quality Stroke Does the patient have a stroke diagnosis?: No VTE Prior VTE?: No VTE Risk Level:: Medical - low VTE Device Contraindication: N/A - Device Ordered VTE Drug Contraindication: Treatment Not Indicated Procedures Date of Service Date of Service: 02/07/24
[2024-02-06 10:49] LABS: Lactic Acid 0.8 mmol/L (0.5-2.0)
--- NOTE | 2024-02-06 11:08 | PHA.MEDREC ---
Addendum entered by Moreno Bowman RPh 02/06/24 11:18: Reviewed by [facility] Original Note: Pharmacy Consult ? Medication Reconciliation Pharmacy has completed the medication reconciliation.
[2024-02-06] MEDS: Lactated Ringers 1,000 ML 80 ML IVCONT ×2 (11:17→21:16)
--- NOTE | 2024-02-06 16:10 | PM.EVENT ---
Event Note Date of Service: 02/06/24 Event Note: Seen on afternoon rounds Says he feels well Denies any abdominal pain Abdomen is soft, no tenderness Looks well Tolerating clear liquids Repeat labs tomorrow and advance diet if he continues to do well Time Spent With Patient Time: Total time managing care of this patient today ____ minutes.
[2024-02-06] MEDS: Piperacillin Sodium/Tazobactam 3.375 GM in 0.9 % Sodium Chloride 50 ML IV ×2 (16:48→23:00)
[2024-02-07 03:45] VITALS: BP 117/60; PULSE 74; RESP 16; TEMP 36.3; O2SAT 98
[2024-02-07] MEDS: Piperacillin Sodium/Tazobactam 3.375 GM in 0.9 % Sodium Chloride 50 ML IV ×2 (04:50→12:13)
[2024-02-07 07:13] VITALS: BP 121/71; PULSE 75; RESP 16; TEMP 37.1; O2SAT 96
[2024-02-07] MEDS: 0.9 % Sodium Chloride Flush 3 ML SYRINGE IVFLUSH (07:56)
[2024-02-07 08:19] LABS: Anion Gap 12 (12-20); Blood Urea Nitrogen 11 mg/dL (9-16); Calcium 9.2 mg/dL (8.4-10.2); Carbon Dioxide 25 mmol/L (22-29); Chloride 108 mmol/L (96-108); Creatinine Clr Calc Pharmacy 126.9; Estimated Glomerular Filt Rate > 60; Glucose Random 83 mg/dL (60-115); Sodium 141 mmol/L (135-145)
[2024-02-07 08:26] LABS: Alanine Aminotransferase 26 U/L (0-40); Albumin Level 3.7 g/dL (3.5-5.0); Alkaline Phosphatase 46 U/L (39-117); Anion Gap 14 (12-20); Aspartate Amino Transferase 23 U/L (5-37); Bilirubin Direct 0.2 mg/dL (0.0-0.5); Bilirubin Total 0.7 mg/dL (0.0-1.0); Blood Urea Nitrogen 10 mg/dL (9-16); Calcium 8.8 mg/dL (8.4-10.2); Carbon Dioxide 22 mmol/L (22-29); Chloride 109 mmol/L (96-108); Estimated Glomerular Filt Rate > 60; Glucose Random 83 mg/dL (60-115); Potassium 4.1 mmol/L (3.3-5.1); Sodium 141 mmol/L (135-145); Total Protein 6.7 g/dL (6.5-8.0)
--- NOTE | 2024-02-07 09:27 | PM.PNGS ---
Subjective Subjective Date of Service: 02/07/24 Interval history: feels well has had no pain no N/V Physical Exam Vital Signs: Vital Signs: Last Vital Signs Temp 98.7 F 02/07/24 07:13 Pulse 75 02/07/24 07:13 Resp 16 02/07/24 07:13 BP 121/71 02/07/24 07:13 Pulse Ox 96 02/07/24 07:13 O2 Del Method Room Air 02/07/24 07:13 BMI result Body Mass Index 32.0 Const: General: comfortable and no acute distress Resp: Effort & Inspection: normal respiratory effort Cardio: Rate: regular rate GI: Other: no Grant's sign Palpation (GI): Soft to palpation, not firm, nontender and no guarding Objective Data Active Medications Acetaminophen (Acetaminophen 325 Mg Tablet) 650 mg PO Q6H PRN PRN Reason: Pain, Mild (Pain Scale 1-3), fever or headache Calcium Carbonate (Calcium Carbonate 750 Mg Tab.Chew) 750 mg PO Q4H PRN PRN Reason: Heartburn Lactated Ringer's (Lr) 1,000 mls @ 80 mls/hr IVCONT .[id number] [facility] Last Admin: 02/06/24 21:16 Dose: 80 mls/hr Documented By: ARIEL Piperacillin Sod/Tazobactam (Sod 3.375 gm/ Sodium Chloride) 50 mls @ 100 mls/hr IV Q6H [facility] Last Infusion: 02/07/24 05:28 Dose: Infused Documented By: ARIEL Melatonin (Melatonin 3 Mg Tablet) 6 mg PO BEDTIME PRN PRN Reason: Insomnia Ondansetron HCl (Ondansetron Hcl 4 Mg/2 Ml Vial) 4 mg IVPUSH Q6H PRN PRN Reason: nausea Sodium Chloride (0.9 % Sodium Chloride Flush 3 Ml Syringe) 3 ml IVFLUSH QSHIFT [facility] Last Admin: 02/07/24 07:56 Dose: 3 ml Documented By: ALMA Labs 02/07/24 09:34 02/07/24 07:24 Labs: Laboratory Results - last 24 hr 02/06/24 02/07/24 02/07/24 10:23 07:24 07:24 Anion Gap 12 14 Estim Creat Clear Calc 126.9 Estimated GFR Random Glucose Lactic Acid 0.8 Calcium Total Bilirubin Direct Bilirubin AST ALT Alkaline Phosphatase Total Protein Albumin 02/07/24 02/07/24 02/07/24 07:24 07:24 07:24 Anion Gap Estim Creat Clear Calc 130.0 Estimated GFR > 60 > 60 Random Glucose 83 83 Lactic Acid Calcium 9.2 Total Bilirubin Direct Bilirubin AST ALT Alkaline Phosphatase Total Protein Albumin 02/07/24 07:24 Anion Gap Estim Creat Clear Calc Estimated GFR Random Glucose Lactic Acid Calcium 8.8 Total Bilirubin 0.7 Direct Bilirubin 0.2 AST 23 ALT 26 Alkaline Phosphatase 46 Total Protein 6.7 Albumin 3.7 Procedures Date of Service Date of Service: 02/07/24 Progress Note: A&P Assessment and plan (1) Epigastric pain: Status: Acute Assessment and Plan: resolved clinically no cholecystitis no tenderness no fever possible home today ffup in office PPI Clinically not acute cholecystitis but because of leukocytosis yesterday, we will send on oral antibiotics Time Spent With Patient Time: Total time managing care of this patient today ____ minutes. Quality Stroke Does the patient have a stroke diagnosis?: No VTE Prior VTE?: No VTE Risk Level:: Medical - low VTE Device Contraindication: N/A - Device Ordered VTE Drug Contraindication: Treatment Not Indicated
[2024-02-07 10:00] LABS: Hemoglobin 14.1 g/dl (14.0-18.0); Mean Corpuscular HGB Conc 34.4 g/dl (31.0-36.0); Mean Corpuscular Hemoglobin 29.7 pg (27.0-33.0); Mean Corpuscular Volume 86.5 fL (80.0-98.0); Mean Platelet Volume 9.9 fL (9.4-12.4); Platelet Count 229 X10*3/uL (160-400); Red Blood Count 4.74 X10*6/uL (4.60-5.80); Red Cell Distribution Width 13.2 % (11.0-16.0)
[2024-02-07] MEDS: Lactated Ringers 1,000 ML 80 ML IVCONT (12:49)
--- NOTE | 2024-02-07 13:26 | MHC.CM.PN ---
Addendum entered by Miracle Jefferson 02/07/24 14:22: PT WILL DC HOME TODAY WITH NO SERVICES Original Note: CM MET WITH PT WITH A [facility] PT LIVES WITH HIS AND IS INDEPENDENT WITH CARE HE HAS NO DME AND NO SERVICES PT DECLINES TO COMPLETE A HCP PCP: PRASHANT ABREU DCP: HOME NO SERVICES PT WILL NEED A WORK NOTE TO TRANSPORT
--- NOTE | 2024-02-07 13:36 | PM.EVENT ---
Event Note Date of Service: 02/07/24 Event Note: Continues to feel well Tolerating diet Denies any abdominal pain No fever Abdomen remained soft, benign, nontender, no Grant's sign We will DC home Follow up in the office He is comfortable with the plan Time Spent With Patient Time: Total time managing care of this patient today ____ minutes.
--- NOTE | 2024-02-07 15:02 | P.DS_ITS ---
DS: Providers Provider Date of Service: 02/07/24 Date of admission: 02/06/24 10:53 Date of discharge: 02/07/24 Primary care physician: Cindy Leiva CNP Attending physician on admission: Doug Vargas Attending physician on discharge: Doug Vargas DS: Diagnosis Discharge Diagnosis (1) Epigastric pain: Status: Acute DS: Summary Hospital Course Hospital Course: HPI AT ADMISSION: Bacilio Quach is a 43 year old male the ER for epigastric pain. He says that this started last night around 10:00 o'clock. He says that this is only in the epigastric area and not on the right upper quadrant. He denies any nausea or vomiting. He denies any fever or chills. He says that this morning as soon as he got to the ER, his pain subsided. He says that this resolved completely after she got Maalox. He says he currently does not have any abdominal pain. He says he currently feels well. CAT scan here in the ER which shows gallbladder wall edema. There are no gallstones seen. HOSPITAL COURSE: He was admitted to the surgical service for observation. He did not have any pain or tenderness at the time of evaluation and did not require any pain medications in the ER. He said that his pain resolved following Maalox. However in view of his leukocytosis he was admitted for observation. He does not want to proceed with any surgical intervention as he says that his pain has completely resolved. He was started on clear liquids. The following day he continued to have no symptoms and was tolerating a liquid. He was advanced to solids. He was started on a PPI. He was reassessed later in the day and was tolerating the diet without recurrence of his pain. His abdomen remained benign. He was discharged to home on 02/07/24 in stable condition. He clinically did not have acute cholecystitis but he was sent on oral abx in view of his initial leukocytosis. He is to follow up in the office in 2 weeks. He was also prescribed omeprazole and referred to GI. Status at Discharge Functional status at discharge: independent ambulation Overall status at discharge: patient is back to baseline Time Attestation Discharge Coordination Time (in mins): 30 Quality: Safe Use of Opioids Does Pt have an Active Cancer Diagnosis on the Problem List?: No Quality: Stroke Does the patient have a stroke diagnosis?: No Physical Exam Vital Signs: Vital Signs: Last Vital Signs Temp 98.7 F 02/07/24 07:13 Pulse 75 02/07/24 07:13 Resp 16 02/07/24 07:13 BP 121/71 02/07/24 07:13 Pulse Ox 96 02/07/24 07:13 O2 Del Method Room Air 02/07/24 07:13 BMI result Body Mass Index 32.0 Const: General: comfortable, no acute distress and alert Orientation/consciousness: patient oriented x3 Resp: Effort & Inspection: normal respiratory effort GI: Inspection: No distended Palpation (GI): Soft to palpation and nontender Skin: General skin exam: no rashes or lesions noted and no jaundice Neuro: General: patient oriented x3 and moves all extremities DS: Data Data Completed and Pending Labs on day of discharge: Preliminary micro results at discharge 02/06/24 10:23 Blood Culture - Preliminary Blood - Venous No growth after 48 hours. 02/06/24 10:23 Blood Culture - Preliminary Blood - Venous No growth after 48 hours. Discharge Plan Discharge Anticipated Discharge Date/Time: 02/07/24 15:00 Patient Disposition: Home, Self-Care Discharge Diagnosis: epigastric pain Referrals: [facility] [place] [facility] [Provider Group] - 2 Weeks Doug Vargas MD [Physician] - 2 Weeks Cindy Leiva CNP [Primary Care Provider] - 2 Weeks Discharge Medications: New omeprazole 20 mg capsule,delayed release(DR/EC) 20 mg PO DAILY Qty: 30 0RF amoxicillin-pot clavulanate 875-125 mg tablet 1 tab PO BID Qty: 12 0RF Discharge Orders: Discharge Order (Routine); Ordered 02/07/24 Ordered By: Doug Vargas Diet: Advance to usual diet Activity on Discharge: As tolerated Stand Alone Forms: Patient Portal Discharge page, Work/School Release Print Language: [place] Activity Restrictions/Additional Instructions: Take your medications as prescribed. If you were prescribed antibiotics today, it is important that you take your medication to their entirety, do not skip any doses, do not finish them early. Follow-up with your primary care provider this week. Return to the emergency department with new or worsening symptoms. Such as fevers, chills, chest pain, shortness of breath, nausea, vomiting, dizziness, headache, vision changes, lethargy In case of emergency call 911 Care Plan Goals: return to baseline Health Concerns: question of cholecystitis Plan of Treatment: ffup as outpt Assessment: doing very well Discharge Date/Time: 02/07/24 15:34
== END 2024-02-07 15:34 | disposition home or self-care (01) ==
LOC: HO.ED 10:32 → HO.S3 19:24 → HO.EDOVER 02-07 10:08
PROVIDERS: Physician Assistant; Admitting Provider Surgery; Emergency Provider Student in an Organized Health Care Education/Training Program; PCP Nurse Practitioner Family; Visit Provider Surgery
DX: R10.13 Epigastric pain (principal); R10.31 Right lower quadrant pain; R10.11 Right upper quadrant pain; I26.99 Other pulmonary embolism without acute cor pulmonale; K81.9 Cholecystitis, unspecified; K29.70 Gastritis, unspecified, without bleeding; Z79.899 Other long term (current) drug therapy
CPT/HCPCS: 36415; 74177; 76705; 80048; 80053; 81001; 82248; 83605; 83690; 85025; 85027; 87040; 96361; 96365; 96366; 96375; 99221; 99285; J0696; J2543; J7120; Q9967

== ENCOUNTER → 2024-02-06 06:57 | Outpatient (BNV) | payer OTHER, SELFPAY | PROVIDERS: Admitting Provider Surgery; Emergency Provider Student in an Organized Health Care Education/Training Program; PCP Nurse Practitioner Family; Visit Provider Radiology Diagnostic Radiology | DX: K81.0 Acute cholecystitis (principal) | CPT/HCPCS: 74177 ==

== ENCOUNTER → 2024-02-06 10:53 | Outpatient (BNV) | payer OTHER, SELFPAY | PROVIDERS: Admitting Provider Surgery; Emergency Provider Student in an Organized Health Care Education/Training Program; PCP Nurse Practitioner Family; Visit Provider Surgery | DX: R10.13 Epigastric pain (principal) | CPT/HCPCS: 99222; 99232; 99499 ==

== ENCOUNTER 2024-02-16 15:24 | Outpatient (AMB) | payer OTHER, SELFPAY ==
--- NOTE | 2024-02-16 15:31 | A.OFFPC_ITS ---
Vital Signs 02/16/24 15:41 Height 5 ft 8 in Weight 207 lb BMI 31.5 BP 108/60 Blood Pressure Location Rt brachial Position Sitting Respiration 16 Pulse 71 Pulse Source Pulse Oximeter Temp 98.6 F Temp Source Temporal Artery Scan Pulse Oximetry (%) 98 Oxygen Delivery Method Room Air Intake Visit Reasons: TCM Intake Note: patient here for TCM Chief Merchandising Officer Required: Yes Chief Merchandising Officer Language: Ophthalmic Dispenser Name: Sunday [id number] Information Interpreted: non-clinical & clinical Allergies No Known Allergies Allergy (Verified 02/16/24 15:59) Medication List - Last Reconciled 02/16/24 by Cindy Leiva CNP amoxicillin-pot clavulanate 875-125 mg 1 tab PO BID omeprazole 20 mg PO DAILY Tobacco use date assessed: 02/16/24 Dental Screening Dental Screen Date: 02/16/24 Did you have a dental visit in the last 12 months?: No Did you have a dental problem in the last 6 months where you did not have access to dental care?: No Was dental information given to patient?: Yes HPI HPI Comments History of Present Illness Details The patient is a 43-year-old male presenting for the transitional care management follow-up for epigastric pain. The pain began the night before he visited the emergency room on February 06, 2024. The patient reported that the pain was localized to the epigastric area and did not extend to the right upper quadrant. There were no associated symptoms such as nausea, vomiting, fever, or chills. Upon arrival at the emergency room, the patient's pain spontaneously subsided and resolved completely after the administration of Melox. A CT scan performed in the emergency department revealed gallbladder wall edema, though no gallstones were present. Due to leukocytosis, the patient was admitted for observation by the Surgical Service. During his hospital stay, he remained asymptomatic, his abdominal examination was benign, and he tolerated a transition from a liquid to a solid diet without recurrence of pain. Despite not displaying clinical signs of acute cholecystitis, the patient was discharged on February 07, 2024, in stable condition with a prescription for oral Augmentin and omeprazole 20 mg daily. He was advised to follow up in the office and with general surgery in two weeks and was referred to gastroenterology. Results - Recent WBC is 11.0 Interpretation by a professional animal control supervisor via electronic tablet. [facility] Medical History (Updated 02/16/24 @ 16:11 by Cindy Leiva CNP) Epigastric pain Morbid obesity No pertinent past medical history Surgical History No pertinent past surgical history Social History Household Members: Spouse and Family Housing: House Patient Tobacco Use Status: Never used Tobacco e-Cigarette/Vaping Use: Never Used service: No Current occupational status: employed Current occupation: [employer]. Cognitive needs: No Hearing needs: No Vision needs: No Questionnaire PHQ-9 Over the last 2 weeks, how often have you been bothered by any of the following problems? 1. Little interest or pleasure in doing things: not at all 2. Feeling down, depressed, or hopeless: not at all 3. Trouble falling or staying asleep, or sleeping too much: not at all 4. Feeling tired or having little energy: not at all 5. Poor appetite or overeating: not at all 6. Feeling bad about yourself - or that you are a failure or have let yourself or your family down: not at all 7. Trouble concentrating on things, such as reading the newspaper or watching television: not at all 8. Moving or speaking so slowly that other people could have noticed. Or the opposite - being so fidgety or restless that you have been moving around a lot more than usual: not at all 9. Thoughts that you would be better off or of hurting yourself in some way: not at all Total score: 0 [id number] - PHQ-9 Billing: Yes Source: Developed by Drs. Stephen Moscoso, Agatha Ibrahim, Lars Mitchell and colleagues, with an educational renita from [employer]. Thrive Questionnaire Date Thrive assessed: 02/16/24 I am a: Patient What is your living situation today?: I have a steady place to live Within the past 12 months, did the food you bought not last and you didn't have the money to get more?: I choose not to answer this question Within the past 12 months, did you worry whether your food would run out before you got money to buy more?: Never true Do you have trouble paying for medicines?: No Do you have trouble getting transportation to medical appointments?: No Do you have trouble paying your heating and electricity bill?: No Do you have trouble taking care of your child, family member or friend?: No Do you have trouble with day-to-day activities such as bathing, preparing meals, shopping, managing finances, etc.?: No Are you currently unemployed and looking for a job?: No Are you interested in more education?: Yes Please select the resources that you would like help with: None Currently or been in a relationship where the following occur: No concerns reported THRIVE Score: 0 AUDIT C Alcohol Use Questionnaire (AUDIT-C) 1. How often do you have a drink containing alcohol?: Monthly or less 2. How many drinks containing alcohol do you have on a typical day when you are drinking?: 1 or 2 3. How often do you have six or more drinks on one occasion?: Never Total Score: 1 SANDY-7 AMB Questionnaire SANDY-7 Date SANDY - 7 assessed: 02/16/24 Feeling nervous, anxious, or on edge: 0 = Not at all Not being able to stop or control worryin = Not at all Worrying too much about different things: 0 = Not at all Trouble relaxin = Not at all Being so restless that it is hard to sit still: 0 = Not at all Becoming easily annoyed or irritable: 0 = Not at all Feeling afraid as if something awful might happen: 0 = Not at all Total SANDY-7 score (0-4 normal; 5-9 mild; 10-14 moderate; 15-21 severe): 0 Source: Developed by Drs. Stephen Moscoso, Agatha Ibrahim, Lars Mitchell and colleagues, with an educational renita from [employer]. SANDY-7 Assessment Billing SANDY-7 Assessment Tool: SANDY-7 Assessment 33647 Review of Systems Const Details: Const Denies chills, Denies fatigue, Denies fever(s), Denies headache(s) and Denies weakness ENT Denies dizziness and Denies headache(s) Card Denies chest pain, Denies lightheadedness, Denies dyspnea and Denies other (Palpitations) Resp Denies cough, Denies dyspnea, Denies wheezing and Denies other ( shortness of breath) GI Denies abdominal pain, Denies melena, Denies hematochezia, Denies change in bowel habits, Denies dyspepsia and Denies nausea Denies hematuria and Denies dysuria Musc Denies abnormal gait, Denies myalgias, Denies arthralgias, Denies numbness and Denies tingling Skin/Breast Denies rash, Denies unusual bruising and Denies wounds Neuro Denies abnormal gait, Denies dizziness, Denies headache(s), Denies memory loss, Denies numbness, Denies Sensory deficit (Neuro), Denies tingling and Denies weakness Psych Denies anxiety, Denies depression, Denies memory loss Endo Denies cold intolerance, Denies fatigue, Denies heat intolerance, Denies polydipsia and Denies polyuria Aller/Immun Denies wheezing Physical exam (Primary Care) Vital Signs: Last Vital Signs Temp 98.6 F 02/16/24 15:41 Pulse 71 02/16/24 15:41 Resp 16 02/16/24 15:41 BP 108/60 02/16/24 15:41 Pulse Ox 98 02/16/24 15:41 Oxygen Delivery Method Room Air 02/16/24 15:41 BMI result Body Mass Index 31.5 Tobacco/Smoking Status: Tobacco use Status Tobacco use date assessed 02/16/24 02/16/24 15:37 Patient Tobacco Use Status Never used Tobacco 02/16/24 15:33 e-Cigarette/Vaping Use Never Used 02/16/24 15:33 PHQ-9: PHQ-9 Score PHQ-9: Total score 0 02/16/24 15:40 Thrive Assessment: Date of Thrive Assessment Date Thrive assessed 02/16/24 02/16/24 15:37 Currently or been in a relationship where the following occur: No concerns reported Const Other: General: no acute distress and well developed Nutritional Appearance: well nourished Orientation/consciousness: patient oriented x3 HENMT Head: Yes normocephalic and Yes atraumatic Eyes General: appearance normal, both eyes and all related structures Pupils: Equal, round and reactive pupils present EOM: EOMs intact bilaterally Resp Effort & Inspection: normal respiratory effort Auscultation: clear to auscultation bilaterally Cardio Rate: regular rate Rhythm: regular rhythm Heart sounds: S1 normal heart sound present, S2 normal heart sound present, no gallops, no murmurs and no rubs GI Palpation (GI): No Abdominal aortic bruit present, Soft to palpation, nontender, No hepatosplenomegaly present and No Rebound tenderness present Auscultation: normal bowel sounds General: Yes no CVA tenderness Back/Spine/Pelvis Back: no CVA tenderness Cervical Spine: cervical ROM normal and No Cervical spine tenderness Thoracic/Lumbar Spine: thoraco-lumbar ROM normal, No pain with thoraco-lumbar ROM, No thoracic spinal tenderness and No lumbar spinal tenderness Extrem General: Yes normal to inspection, No edema and No calf tenderness Skin General: warm and dry. Normal skin color. Normal skin turgor Lesions: no lesions Rashes: no rashes Trauma: no lacerations or abrasions Wounds: no wounds Nails: normal Neuro General: patient oriented x3, gait normal and no focal neuro deficit Cranial nerves: Yes Equal, round and reactive pupils present Cognition (Neuro): normal cognition Gait exam (Neuro): Normal gait present Sensory Exam: No Sensory deficit (Neuro) Psych Appearance: grossly normal Affect: normal affect Attitude: cooperative Thought process: Normal thought process present Coding Level of Care Code TCM Mod MDM <= 14 Days Diagnoses Epigastric pain R10.13 Leukocytosis D72.829 Additional Codes SANDY-7 Assessment Billing - SANDY-7 Assessment Tool: SANDY-7 Assessment 86317 ([id number]) PHQ-9 - 89965 - PHQ-9 Billing: Yes ([id number]) Assessment & Plan Assessment & Plan (1) Epigastric pain: Code(s): R10.13 - Epigastric pain Category: Medical Plan: Patient is to continue taking omeprazole 20 mg daily and complete the prescribed course of Augmentin. Follow up with gastroenterology as referred. The patient does not wish to pursue any surgical intervention at this time. (2) Leukocytosis: Code(s): D72.829 - Elevated white blood cell count, unspecified Category: Medical Plan: No further immediate action required if asymptomatic; to be monitored in follow- up visits. Plan I informed the patient that the current management for the resolution of epigastric pain includes omeprazole and Augmentin, which he should continue as prescribed. We discussed the findings of his CT scan in the emergency department, which showed gallbladder wall edema. Currently, surgical intervention is not necessary as his symptoms have resolved. I emphasized the importance of completing the antibiotic course and reiterated instructions for his gastroenterology follow-up. We reviewed his scheduled physical and blood work in February, reminding him to fast 10-12 hours before his laboratory appointments. Patient Instructions: - Continue taking omeprazole 20 mg daily. - Complete the course of Augmentin as prescribed. - Follow up with the gastroenterology appointment once scheduled. - Attend the physical examination and perform fasting labs in February, as instructed. - Monitor for any recurrence of symptoms and seek medical attention if they arise. Patient was informed and verbally consented to the use of an ambient scribe for clinic note documentation during this visit.
[2024-02-16 15:41] VITALS: BP 108/60; PULSE 71; RESP 16; TEMP 37; O2SAT 98; BMI 31.5
== END 2024-02-16 16:05 | disposition home or self-care (01) ==
PROVIDERS: PCP Nurse Practitioner Family; Visit Provider Nurse Practitioner Family
DX: R10.13 Epigastric pain (principal); D72.829 Elevated white blood cell count, unspecified

== ENCOUNTER → 2024-02-16 15:24 | Outpatient (BNVA) | payer OTHER, SELFPAY | PROVIDERS: PCP Nurse Practitioner Family; Visit Provider Nurse Practitioner Family | DX: R10.13 Epigastric pain (principal); D72.829 Elevated white blood cell count, unspecified; Z79.899 Other long term (current) drug therapy | CPT/HCPCS: 96127 ==

== ENCOUNTER 2024-03-01 22:35 | Inpatient (IN) | payer OTHER, SELFPAY ==
--- NOTE | ~2024-03-01 | US_ITS ---
EXAMINATION: US ABDOMEN LIMITED CLINICAL INFORMATION: Right upper quadrant pain.. COMPARISON: Right upper quadrant ultrasound 02/06/2024. TECHNIQUE: Real-time imaging of the right upper quadrant abdominal viscera. FINDINGS: Pancreas: The visualized pancreatic head and body are normal in appearance. Liver: Normal. Gallbladder: Multiple echogenic gallstones with posterior acoustic shadowing are present within the gallbladder lumen. Findings include an 8 mm gallstone within the neck of the gallbladder. The gallbladder demonstrates diffuse gallbladder wall thickening to with a 5 mm. No pericholecystic fluid collections identified. Common bile duct: 4 mm in diameter. No choledocholithiasis identified. Right kidney: 10.2 cm maximum dimension. No hydronephrosis or renal calculi visualized. No free intraperitoneal fluid collections are identified. US/US abdomen limited IMPRESSION: Cholelithiasis including an 8 mm gallstone within the neck of the gallbladder which may be impacted. Additionally, diffuse gallbladder wall thickening to with a 5 mm is present. Collectively, findings are suspicious for acute cholecystitis. No biliary duct dilatation. Electronically signed by: Temo Guerrero MD 03/02/2024 04:07 AM SREE
[2024-03-01] MEDS: Ondansetron ODT 4 MG TAB.RAPDIS TRANSLINGU (22:55)
[2024-03-01 23:04] VITALS: BP 115/76; PULSE 62; RESP 20; TEMP 36.9; O2SAT 99; BMI 42.6
[2024-03-01 23:08] LABS: MANUAL DIFF FLAG NO
[2024-03-01 23:10] LABS: Basophils Percent Auto 0.3 % (0-2); Eosinophils Absolute Auto 0.2 X10*3/uL (0.0-0.4); Eosinophils Percent Auto 1.6 % (0-4); Hemoglobin 13.9 g/dl (14.0-18.0); Imm Gran Abs Auto 0.03 X10*3/uL (0.00-0.03); Imm Gran Pct Auto 0.2 % (0.0-0.4); Lymphocytes Percent Auto 16.3 % (20-40); Mean Corpuscular HGB Conc 34.8 g/dl (31.0-36.0); Mean Corpuscular Hemoglobin 29.6 pg (27.0-33.0); Mean Corpuscular Volume 85.1 fL (80.0-98.0); Monocytes Absolute Auto 0.8 X10*3/uL (0.1-1.2); Monocytes Percent Auto 6.8 % (2-11); Neutrophils Absolute Auto 9.1 x10*3/uL (2.0-8.3); Neutrophils Percent Auto 74.8 % (45-73); Platelet Count 232 X10*3/uL (160-400); Red Cell Distribution Width 13.4 % (11.0-16.0); White Blood Count 12.1 X10*3/uL (4.8-10.8)
--- NOTE | 2024-03-01 23:17 | PC.NURSE ---
Pt report feeling dizziness, notified charge nurse Stephanie.
[2024-03-01 23:23] LABS: Alanine Aminotransferase 33 U/L (0-40); Albumin Level 4.2 g/dL (3.5-5.0); Alkaline Phosphatase 47 U/L (39-117); Anion Gap 11 (12-20); Aspartate Amino Transferase 28 U/L (5-37); Bilirubin Total 0.4 mg/dL (0.0-1.0); Blood Urea Nitrogen 13 mg/dL (9-16); Calcium 8.7 mg/dL (8.4-10.2); Carbon Dioxide 25 mmol/L (22-29); Chloride 107 mmol/L (96-108); Creatinine Clr Calc Pharmacy 119.4; Estimated Glomerular Filt Rate > 60; Glucose Random 120 mg/dL (60-115); Lipase 18 U/L (8-78); Potassium 3.2 mmol/L (3.3-5.1); Sodium 140 mmol/L (135-145); Total Protein 7.3 g/dL (6.5-8.0)
[2024-03-02] VITALS (7 sets, daily range): BP systolic 100–122; BP diastolic 56–76; PULSE 65–87; RESP 13–17; TEMP 36.5–36.9; O2SAT 96–99; BMI 42.6; BMI 33.6
--- NOTE | 2024-03-02 00:03 | PC.NURSE ---
offer pt Tylenol for pain, pt refused
--- NOTE | 2024-03-02 02:03 | MHC.EDTECH ---
AT THIS TIME THIS TECH CHANGED OVER PT INTO HOSPTAL GOWN AND PLACED ON QUALITY ASSURANCE PRACTICE MANAGER
[2024-03-02] MEDS: Ketorolac Tromethamine 15 MG/ML VIAL IVPUSH (02:14)
[2024-03-02] MEDS: Morphine Sulfate 4 MG/ML CARTRIDGE IVPUSH (02:14)
--- NOTE | 2024-03-02 02:18 | PC.NURSE ---
this rn assumed care of pt @ 0200 from waiting room. iv placed pt medicated according to diomedes spanish interpreter/translator utilized
--- NOTE | 2024-03-02 02:19 | ED_ITS ---
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 He notes since Friday afternoon after eating a breakfast burrito with eggs he developed n/v and epigastric RUQ pain. No diarrhea and no fevers MD elicited complaint: abdominal pain Pertinent past history: gastritis Onset (ago): day(s) (1+) Pain Consistency: constant Location: epigastric and RUQ Severity: moderate Quality: aching Radiation: none Migration to: no migration Exacerbating factors: eating Relieving factors: nothing Context: history of similar episodes Associated symptoms: nausea and vomiting Related Data Previous Rx's ?Medication ?Instructions ?Recorded amoxicillin 875 mg-potassium 1 tab PO BID #12 tabs 02/07/24 clavulanate 125 mg tablet omeprazole 20 mg capsule,delayed 20 mg PO DAILY #30 caps 02/07/24 release Allergies Allergy/AdvReac Type Severity Reaction Status Date / Time No Known Allergies Allergy Verified 03/01/24 23:07 Review of Systems Review of Systems Constitutional : No Weight loss, No Fever, No Chills ENT/Mouth : No sore throat, No Rhinorrhea Eyes: No Swelling, No Redness Cardiovascular : No Chest Pain, No SOB, NoEdema Respiratory : No Cough, No Sputum, No Wheezing Gastrointestinal : Positive Nausea, Positive Vomiting, no Diarrhea, positive abdominal Pain, No Hematochezia, No Melena Genitourinary : No Dysuria, No Urinary Frequency, No Hematuria, No Urgency Musculoskeletal : No joint pain, No Myalgias, No Joint Swelling Skin : No Skin Lesions, No rash Neuro : No Weakness, No Numbness, No Dizziness, No Headache All other systems reviewed and are negative. [facility] Past Medical History Attestation statement: The following information was validated with the patient. 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 Cognitive needs: No Hearing needs: No Vision needs: No Physical Exam ED Vital Signs: Vital Signs - 24 hr 03/01/24 23:04 03/02/24 02:01 Temperature 98.4 F 97.7 F Pulse Rate 62 87 Respiratory Rate 20 17 Blood Pressure 115/76 120/76 Pulse Oximetry 99 97 Oxygen Delivery Method Room Air Room Air BMI result Body Mass Index 42.6 Appearance: Alert. Oriented X3. No acute distress. Eyes: Pupils equal, round and reactive to light. ENT: Pharynx normal. Neck: Normal inspection. Neck supple. CVS: Normal heart rate and rhythm. Pulses normal. Respiratory: No respiratory distress. Breath sounds normal. Abdomen: Soft and mild epigastric ttp and RUQ pain but neg springer's Skin: Skin warm and dry. Normal skin color. Extremities: No lower extremity edema. Neuro: Oriented X 3. No motor deficit. No sensory deficit. Course Course Course Narrative: signed out to Dr. Villasenor pending workup Medical Decision Making Medical Decision Making [facility] Narrative: 43 yo male with PMH of GERD, gastritis admitted here 02/05 to 02/06 abdominal pain and ?cholecystitis but work up reassuring and he was DC home with low fat diet at this time will obtain labs, US and start in IV toradol and morphine for pain. Possible gastritis, GERD, biliary colic Differential Diagnosis Differential Diagnoses: The differential diagnosis associated with the presentation includes gastritis, GERD, biliary colic Admission/Observation Consideration of admission/observation: Escalation of care including admission/observation considered Lab Data [facility] Lab Attestation statement: I reviewed the patient's lab results. 03/01/24 23:02 03/01/24 23:02 Labs: Lab Results 03/01/24 Range/Units 23:02 WBC 12.1 H (4.8-10.8) X10*3/uL RBC 4.70 (4.60-5.80) X10*6/uL Hgb 13.9 L (14.0-18.0) g/dl Hct 40.0 L (42.0-52.0) % MCV 85.1 (80.0-98.0) fL MCH 29.6 (27.0-33.0) pg MCHC 34.8 (31.0-36.0) g/dl RDW 13.4 (11.0-16.0) % Plt Count 232 (160-400) X10*3/uL MPV 10.0 (9.4-12.4) fL Immature Gran % (Auto) 0.2 (0.0-0.4) % Neut % (Auto) 74.8 H (45-73) % Lymph % (Auto) 16.3 L (20-40) % [place] % (Auto) 6.8 (2-11) % Eos % (Auto) 1.6 (0-4) % Baso % (Auto) 0.3 (0-2) % Lymph # (Auto) 2.0 (1.2-4.9) X10*3/uL [place] # (Auto) 0.8 (0.1-1.2) X10*3/uL Eos # (Auto) 0.2 (0.0-0.4) X10*3/uL Baso # (Auto) 0.0 (0.0-0.2) X10*3/uL Abs Immat Gran (auto) 0.03 (0.00-0.03) X10*3/uL Absolute Neuts (auto) 9.1 H (2.0-8.3) x10*3/uL Absolute Nucleated RBC 0.000 (0.0-0.012) X10*3/uL Nucleated RBC % (auto) 0.0 (0.0-0.2) /100WBC Sodium 140 (135-145) mmol/L Potassium 3.2 L D (3.3-5.1) mmol/L Chloride 107 (96-108) mmol/L Carbon Dioxide 25 (22-29) mmol/L Anion Gap 11 L (12-20) BUN 13 (9-16) mg/dL Creatinine 0.95 (0.5-1.4) mg/dL Estim Creat Clear Calc 119.4 Estimated GFR > 60 Random Glucose 120 H (60-115) mg/dL Calcium 8.7 (8.4-10.2) mg/dL Total Bilirubin 0.4 (0.0-1.0) mg/dL AST 28 (5-37) U/L ALT 33 (0-40) U/L Alkaline Phosphatase 47 (39-117) U/L Total Protein 7.3 (6.5-8.0) g/dL Albumin 4.2 (3.5-5.0) g/dL Lipase 18 (8-78) U/L External Record Review External record reviewed: Inpatient record Medications Administered Discontinued Medications Generic Name Dose Route Start Last Admin Trade Name Freq PRN Reason Stop Dose Admin Ketorolac Tromethamine 15 mg 03/02/24 01:46 03/02/24 02:14 Ketorolac Tromethamine 15 Mg/Ml Vial IVPUSH 03/02/24 01:47 15 mg ONCE ONE Administration Morphine Sulfate 4 mg 03/02/24 01:46 03/02/24 02:14 Morphine Sulfate 4 Mg/Ml Cartridge IVPUSH 03/02/24 01:47 4 mg ONCE ONE Administration Protocol Ondansetron HCl 4 mg 03/01/24 22:54 03/01/24 22:55 Ondansetron Odt 4 Mg Tab.Rapdis TRANSLINGU 03/01/24 22:55 4 mg ONCE ONE Administration Discharge Plan Discharge Clinical Impression: Abdominal pain Patient Disposition: Still a Patient Prescriptions: No Action omeprazole 20 mg capsule,delayed release(DR/EC) 20 mg PO DAILY Qty: 30 0RF amoxicillin-pot clavulanate 875-125 mg tablet 1 tab PO BID Qty: 12 0RF Print Language: Sammarinese
[2024-03-02 04:57] LABS: Appearance Urine Clear; Color Urine Yellow; Glucose Urine UA Negative (Negative); Leukocyte Esterase Urine Negative (Negative); Nitrite Urine Negative (Negative); Specific Gravity - Urine 1.025 (1.005-1.025); Urine Blood Negative (Negative); Urine Ketones 15 mg/dL (Negative); Urine Protein Trace mg/dL (Neg-Trace)
[2024-03-02 05:00] LABS: Bacteria Urine None Seen (None Seen); Hyaline Casts Urine 0-2 /LPF (0-2); RBC Urine 0-2 /HPF (0-2); Squamous Epithelial Cell Urine 0-2 /HPF (0-2); WBC Urine 0-5 /HPF (0-5)
[2024-03-02] MEDS: 0.9 % Sodium Chloride Flush 3 ML SYRINGE IVFLUSH (07:57)
[2024-03-02] MEDS: Lactated Ringers 1,000 ML 80 ML IVCONT ×2 (07:58→20:20)
--- NOTE | 2024-03-02 08:06 | PM.HPGS ---
History of Present Illness History of Present Illness Date of Service: 03/03/24 Chief complaint: GALLSTONES Narrative: Bacilio Quach is a 43 year old male with known gallstones, here in the ER for epigastric pain. He says that this happened last night. Describes this pain as localized in the epigastric area. He says that the pain has resolved and denies any pain at this time He denies any nausea or vomiting He was admitted to the hospital last month for the same symptoms. He did have known gallstones but at that time, in view of the resolution of his pain along with atypical symptoms, he decided to not have the surgery then. His pain had always been on the epigastric area and says that he had never has pain in the right upper quadrant. He denies other medical problems. Review of Systems Constitutional: Constitutional: Denies chills and Denies fever(s) Cardiovascular: Cardiovascular: Denies chest pain, Denies dyspnea and Denies dyspnea on exertion Respiratory: Respiratory: Denies cough, Denies dyspnea and Denies dyspnea on exertion Gastrointestinal: Gastrointestinal: Denies hematochezia and Denies change in bowel habits Genitourinary: Genitourinary: Denies hematuria and Denies difficulty urinating Musculoskeletal: Musculoskeletal: Denies back pain and Denies limited range of motion Neurologic: Denies focal weakness and Denies convulsions Psychiatric: Psychiatric: Denies depression and Denies mood swings PMFSH Past Medical History Medical History (Updated 03/02/24 @ 08:08 by Doug Vargas MD) Gallstones Epigastric pain Morbid obesity No pertinent past medical history Surgical History Surgical History No pertinent past surgical history Social History Social History Household Members: Spouse Housing: House Do you presently have visiting nurse or other home services: No Patient Tobacco Use Status: Never used Tobacco Smoked in Last 30 Days: No e-Cigarette/Vaping Use: Never Used Use of substances other than those prescribed or required for medical reasons: No Currently Displaying Signs/Symptoms of Drug Intoxication Withdrawal: No Have you been hit, kicked, punched, or otherwise hurt by someone within the past year? If so, by whom?: No Do you feel safe in your current relationship?: Yes Is there a partner from a previous relationship who is making you feel unsafe now?: No Are you made to feel afraid or neglected: No Advance Directives: No Advance Directives Information Provided: Yes Do you have a plan to hurt others: No Plan Recently lost weight without trying: Yes How much weight loss: 2-13 pounds Eating poorly because of decreased appetite: Yes Nutrition screen score: 4 Nutrition Risks: Poor intake 0-25% >4 days service: No Current occupational status: employed Current occupation: [employer]. Cognitive needs: No Hearing needs: No Vision needs: No Meds Allergies Allergy/AdvReac Type Severity Reaction Status Date / Time No Known Allergies Allergy Verified 03/01/24 23:07 Active Medications: Current Medications Acetaminophen (Acetaminophen 325 Mg Tablet) 650 mg PO Q6H PRN PRN Reason: Pain, Mild (Pain Scale 1-3), fever or headache Calcium Carbonate (Calcium Carbonate 750 Mg Tab.Chew) 750 mg PO Q4H PRN PRN Reason: Heartburn Heparin Sodium (Porcine) (Heparin Sodium,Porcine 5,000 Unit/Ml Vial) 5,000 unit SUBCUT Q8H [facility] Lactated Ringer's (Lr) 1,000 mls @ 80 mls/hr IVCONT .[id number] [facility] Last Admin: 03/02/24 07:58 Dose: 80 mls/hr Magnesium Hydroxide (Milk Of Magnesia 30 Ml Oral.Susp) 30 ml PO DAILY PRN PRN Reason: Constipation Melatonin (Melatonin 3 Mg Tablet) 6 mg PO BEDTIME PRN PRN Reason: Insomnia Sodium Chloride (0.9 % Sodium Chloride Flush 3 Ml Syringe) 3 ml IVFLUSH QSHIFT [facility] Last Admin: 03/02/24 07:57 Dose: 3 ml Home Medications ?Medication ?Instructions ?Recorded ?Confirmed ?Last Taken ?Type omeprazole 20 mg capsule,delayed 20 mg PO DAILY@0630 03/02/24 03/02/24 03/01/24 History release Physical Exam Vital Signs: Vital Signs: Last Vital Signs Temp 97.7 F 03/02/24 05:00 Pulse 65 03/02/24 07:02 Resp 13 03/02/24 07:02 BP 103/57 L 03/02/24 07:02 Pulse Ox 98 03/02/24 07:02 O2 Del Method Room Air 03/02/24 07:02 BMI result Body Mass Index 42.6 Const: General: comfortable and no acute distress Orientation/consciousness: patient oriented x3 Neck: Neck: Yes no lymphadenopathy Resp: Auscultation: clear to auscultation bilaterally Cardio: Rhythm: regular rhythm GI: Other: No Grant's sign Palpation (GI): Soft to palpation, nontender and no guarding Neuro: General: patient oriented x3 Results Results Labs: Short CBC 03/01/24 Range/Units 23:02 WBC 12.1 H (4.8-10.8) X10*3/uL Hgb 13.9 L (14.0-18.0) g/dl Hct 40.0 L (42.0-52.0) % Plt Count 232 (160-400) X10*3/uL BMP 03/01/24 23:02 Sodium 140 Potassium 3.2 L D Chloride 107 Carbon Dioxide 25 BUN 13 Creatinine 0.95 Calcium 8.7 Liver Function 03/01/24 Range/Units 23:02 Total Bilirubin 0.4 (0.0-1.0) mg/dL AST 28 (5-37) U/L ALT 33 (0-40) U/L Alkaline Phosphatase 47 (39-117) U/L Albumin 4.2 (3.5-5.0) g/dL Urine 03/02/24 Range/Units 04:52 Urine Color Yellow Urine Appearance Clear Urine pH 7.0 (5.0-9.0) Ur Specific [place] 1.025 (1.005-1.025) Urine Protein Trace (Neg-Trace) mg/dL Urine Glucose (UA) Negative (Negative) mg/dL Laboratory Results WBC 12.1 X10*3/uL (4.8-10.8) H 03/01/24 23:02 RBC 4.70 X10*6/uL (4.60-5.80) 03/01/24 23:02 Hgb 13.9 g/dl (14.0-18.0) L 03/01/24 23:02 Hct 40.0 % (42.0-52.0) L 03/01/24 23:02 MCV 85.1 fL (80.0-98.0) 03/01/24 23:02 MCH 29.6 pg (27.0-33.0) 03/01/24 23:02 MCHC 34.8 g/dl (31.0-36.0) 03/01/24 23:02 RDW 13.4 % (11.0-16.0) 03/01/24 23:02 Plt Count 232 X10*3/uL (160-400) 03/01/24 23:02 MPV 10.0 fL (9.4-12.4) 03/01/24 23:02 Immature Gran % (Auto) 0.2 % (0.0-0.4) 03/01/24 23:02 Neut % (Auto) 74.8 % (45-73) H 03/01/24 23:02 Lymph % (Auto) 16.3 % (20-40) L 03/01/24 23:02 [place] % (Auto) 6.8 % (2-11) 03/01/24 23:02 Eos % (Auto) 1.6 % (0-4) 03/01/24 23:02 Baso % (Auto) 0.3 % (0-2) 03/01/24 23:02 Lymph # (Auto) 2.0 X10*3/uL (1.2-4.9) 03/01/24 23:02 [place] # (Auto) 0.8 X10*3/uL (0.1-1.2) 03/01/24 23:02 Eos # (Auto) 0.2 X10*3/uL (0.0-0.4) 03/01/24 23:02 Baso # (Auto) 0.0 X10*3/uL (0.0-0.2) 03/01/24 23:02 Abs Immat Gran (auto) 0.03 X10*3/uL (0.00-0.03) 03/01/24 23:02 Absolute Neuts (auto) 9.1 x10*3/uL (2.0-8.3) H 03/01/24 23:02 Absolute Nucleated RBC 0.000 X10*3/uL (0.0-0.012) 03/01/24 23:02 Nucleated RBC % (auto) 0.0 /100WBC (0.0-0.2) 03/01/24 23:02 Sodium 140 mmol/L (135-145) 03/01/24 23:02 Potassium 3.2 mmol/L (3.3-5.1) L D 03/01/24 23:02 Chloride 107 mmol/L (96-108) 03/01/24 23:02 Carbon Dioxide 25 mmol/L (22-29) 03/01/24 23:02 Anion Gap 11 (12-20) L 03/01/24 23:02 BUN 13 mg/dL (9-16) 03/01/24 23:02 Creatinine 0.95 mg/dL (0.5-1.4) 03/01/24 23:02 Estim Creat Clear Calc 119.4 03/01/24 23:02 Estimated GFR > 60 03/01/24 23:02 Random Glucose 120 mg/dL (60-115) H 03/01/24 23:02 Calcium 8.7 mg/dL (8.4-10.2) 03/01/24 23:02 Total Bilirubin 0.4 mg/dL (0.0-1.0) 03/01/24 23:02 AST 28 U/L (5-37) 03/01/24 23:02 ALT 33 U/L (0-40) 03/01/24 23:02 Alkaline Phosphatase 47 U/L (39-117) 03/01/24 23:02 Total Protein 7.3 g/dL (6.5-8.0) 03/01/24 23:02 Albumin 4.2 g/dL (3.5-5.0) 03/01/24 23:02 Lipase 18 U/L (8-78) 03/01/24 23:02 Urine Color Yellow 03/02/24 04:52 Urine Appearance Clear 03/02/24 04:52 Urine pH 7.0 (5.0-9.0) 03/02/24 04:52 Ur Specific [place] 1.025 (1.005-1.025) 03/02/24 04:52 Urine Protein Trace mg/dL (Neg-Trace) 03/02/24 04:52 Urine Glucose (UA) Negative mg/dL (Negative) 03/02/24 04:52 Urine Ketones 15 mg/dL (Negative) 03/02/24 04:52 Urine Blood Negative (Negative) 03/02/24 04:52 Urine Nitrite Negative (Negative) 03/02/24 04:52 Ur Leukocyte Esterase Negative (Negative) 03/02/24 04:52 Urine RBC 0-2 /HPF (0-2) 03/02/24 04:52 Urine WBC 0-5 /HPF (0-5) 03/02/24 04:52 Ur Squamous Epith Cells 0-2 /HPF (0-2) 03/02/24 04:52 Urine Bacteria None Seen (None Seen) 03/02/24 04:52 Hyaline Casts 0-2 /LPF (0-2) 03/02/24 04:52 Impressions Abdomen Ultrasound 03/02/24 02:45 IMPRESSION: Cholelithiasis including an 8 mm gallstone within the neck of the gallbladder which may be impacted. Additionally, diffuse gallbladder wall thickening to with a 5 mm is present. Collectively, findings are suspicious for acute cholecystitis. No biliary duct dilatation. Electronically signed by: Temo Guerrero MD 03/02/2024 04:07 [place] [facility] [place]/results: report reviewed and image reviewed Assessment and Plan (1) Gallstones: Status: Acute He is here for epigastric pain again. He has known gallstones. This is his 2nd admission since last month. I therefore told him that it may be best to proceed with cholecystectomy especially as the 8 mm stone is described to be in the neck of the gallbladder I reviewed with him the technique of laparoscopic cholecystectomy possible open cholecystectomy. I reviewed the risks including but not limited to bleeding, infections, bowel injury, injury to other organs, bile leak, retained stones, as well as the benefits and alternatives. He is considering staying for now and if he decides, we will proceed with laparoscopic cholecystectomy tomorrow. Quality Stroke Does the patient have a stroke diagnosis?: No VTE Prior VTE?: No VTE Risk Level:: Medical - moderate - high VTE Device Contraindication: N/A - Device Ordered VTE Drug Contraindication: N/A - Med Ordered Procedures Date of Service Date of Service: 03/03/24
--- NOTE | 2024-03-02 09:27 | PHA.MEDREC ---
Addendum entered by Trang Whitaker RPh 03/02/24 09:54: reviewed by [facility]. Original Note: Pharmacy Consult ? Medication Reconciliation Pharmacy has completed the medication reconciliation. Spoke to patient through lead systems developer service to [employer]
--- NOTE | 2024-03-02 15:14 | PM.EVENT ---
Event Note Date of Service: 03/03/24 Event Note: Seen on afternoon rounds Feels well Denies abdominal pain On clear liquids No nausea or vomiting Abdomen soft, nontender He says he plans to stay and proceed with cholecystectomy tomorrow I reviewed with him the technique of laparoscopic cholecystectomy Explained the risks including but not limited to bleeding, infections, injury to other organs, bile leak, retained stones, persistence of symptoms, as well as the benefits and alternatives Time Spent With Patient Time: Total time managing care of this patient today ____ minutes.
[2024-03-03 03:29] VITALS: BP 121/66; PULSE 65; RESP 18; TEMP 36.4; O2SAT 96
[2024-03-03 07:59] VITALS: BP 116/77; PULSE 70; RESP 17; TEMP 36.8; O2SAT 98
[2024-03-03] MEDS: Lactated Ringers 1,000 ML 80 ML IVCONT (08:14)
--- NOTE | 2024-03-03 08:24 | PM.PNGS ---
Subjective Subjective Date of Service: 03/03/24 Interval history: Denies Abdominal pain Feels well overall No events overnight Physical Exam Vital Signs: Vital Signs: Last Vital Signs Temp 98.3 F 03/03/24 07:59 Pulse 70 03/03/24 07:59 Resp 17 03/03/24 07:59 BP 116/77 03/03/24 07:59 Pulse Ox 98 03/03/24 07:59 O2 Del Method Room Air 03/03/24 07:59 BMI result Body Mass Index 33.6 Const: General: comfortable and no acute distress Eyes: Other: Anicteric Resp: Effort & Inspection: normal respiratory effort Cardio: Rate: regular rate GI: Palpation (GI): Soft to palpation, not firm, nontender and no guarding Objective Data Active Medications Acetaminophen (Acetaminophen 325 Mg Tablet) 650 mg PO Q6H PRN PRN Reason: Pain, Mild (Pain Scale 1-3), fever or headache Calcium Carbonate (Calcium Carbonate 750 Mg Tab.Chew) 750 mg PO Q4H PRN PRN Reason: Heartburn Heparin Sodium (Porcine) (Heparin Sodium,Porcine 5,000 Unit/Ml Vial) 5,000 unit SUBCUT Q8H [facility] Last Admin: 03/03/24 08:15 Dose: Not Given Documented By: KORIN Non-Admin Reason: Physician Held Med Lactated Ringer's (Lr) 1,000 mls @ 80 mls/hr IVCONT .[id number] [facility] Last Admin: 03/03/24 08:14 Dose: 80 mls/hr Documented By: KORIN Magnesium Hydroxide (Milk Of Magnesia 30 Ml Oral.Susp) 30 ml PO DAILY PRN PRN Reason: Constipation Melatonin (Melatonin 3 Mg Tablet) 6 mg PO BEDTIME PRN PRN Reason: Insomnia Sodium Chloride (0.9 % Sodium Chloride Flush 3 Ml Syringe) 3 ml IVFLUSH QSHIFT [facility] Last Admin: 03/03/24 08:13 Dose: Not Given Documented By: KORIN Non-Admin Reason: IV Running Labs 03/01/24 23:02 03/01/24 23:02 Procedures Date of Service Date of Service: 03/03/24 Progress Note: A&P Assessment and plan (1) Symptomatic cholelithiasis: Status: Acute Assessment and Plan: He has had recurrent episode suggestive of biliary colic He says he wants to proceed with cholecystectomy I reviewed with the technique of laparoscopic cholecystectomy possible open cholecystectomy Explained the risks including but not limited to bleeding, infections, injury to other organs including bowel, liver, bile duct, retained stones, bile leak, as well as the benefits and alternatives. He has given consent. Time Spent With Patient Time: Total time managing care of this patient today ____ minutes. Quality Stroke Does the patient have a stroke diagnosis?: No VTE Prior VTE?: No VTE Risk Level:: Medical - moderate - high VTE Device Contraindication: N/A - Device Ordered VTE Drug Contraindication: N/A - Med Ordered
--- NOTE | 2024-03-03 09:52 | MHC.CM.PN ---
PT IS INDEPEDENT LIVES W/S/O WILL NOT NEED SERVIES WHEN DCD
--- NOTE | 2024-03-03 10:16 | PM.EVENT ---
Event Note Date of Service: 03/03/24 Event Note: Patient was scheduled as an add on for laparoscopic cholecystectomy today However, the OR had informed me that there are emergencies Uncertain when cholecystectomy may be done today I explained the above to the patient I explained the option of waiting until tomorrow or Procedure as an outpatient He says that he has had no pain at all since coming to the OR He wants to be discharged and do this as an outpatient as he has been asymptomatic He understands the risk of recurrence of symptoms He is abdomen remained soft, benign and nontender He has had no fever I will therefore start him on regular diet and if he remains asymptomatic, I will discharge him and schedule as outpatient Discussion was done with an filament coil winder Time Spent With Patient Time: Total time managing care of this patient today ____ minutes.
--- NOTE | 2024-03-03 10:40 | MHC.CM.PN ---
pt dcd home self care
--- NOTE | 2024-03-05 08:39 | P.DS_ITS ---
DS: Providers Provider Date of Service: 03/05/24 Date of admission: 03/02/24 07:43 Primary care physician: Cindy Leiva CNP DS: Diagnosis Discharge Diagnosis (1) Gallstones: Status: Acute DS: Summary Hospital Course Hospital Course: 43-year-old male with known gallstones, admitted because of epigastric pain. His ultrasound showed question of cholecystitis. However, he was nontender on examination when seen in the ER. He was admitted for observation. Because of his gallstones, I had discussed with him the option of proceeding cholecystectomy. He initially had agreed to proceed with this. He was asymptomatic but I scheduled him for laparoscopic cholecystectomy 03/03/2024. Because of scheduling conflicts in the OR, his so OR spot was moved to later on in the day but he decided to be discharged as he had been asymptomatic since admission. He wanted to do the surgery as an outpatient He continued to tolerate diet. He is exam remains very benign he denies any fever or chills. He was discharged therefore with instructions to follow up with me in the office. Time Attestation Discharge Coordination Time (in mins): 30 min Quality: Safe Use of Opioids Does Pt have an Active Cancer Diagnosis on the Problem List?: No Quality: Stroke Does the patient have a stroke diagnosis?: No Physical Exam Vital Signs: Vital Signs: Last Vital Signs Temp 98.3 F 03/03/24 07:59 Pulse 70 03/03/24 07:59 Resp 17 03/03/24 07:59 BP 116/77 03/03/24 07:59 Pulse Ox 98 03/03/24 07:59 O2 Del Method Room Air 03/03/24 07:59 BMI result Body Mass Index 33.6 Const: General: comfortable and no acute distress Orientation/consciousness: patient oriented x3 Neck: Neck: Yes no lymphadenopathy Resp: Auscultation: clear to auscultation bilaterally Cardio: Rhythm: regular rhythm GI: Palpation (GI): Soft to palpation, nontender and no guarding Neuro: General: patient oriented x3 DS: Data Data Completed and Pending Labs on day of discharge: Laboratory Results WBC 12.1 X10*3/uL (4.8-10.8) H 03/01/24 23:02 RBC 4.70 X10*6/uL (4.60-5.80) 03/01/24 23:02 Hgb 13.9 g/dl (14.0-18.0) L 03/01/24 23:02 Hct 40.0 % (42.0-52.0) L 03/01/24 23:02 MCV 85.1 fL (80.0-98.0) 03/01/24 23:02 MCH 29.6 pg (27.0-33.0) 03/01/24 23:02 MCHC 34.8 g/dl (31.0-36.0) 03/01/24 23:02 RDW 13.4 % (11.0-16.0) 03/01/24 23:02 Plt Count 232 X10*3/uL (160-400) 03/01/24 23:02 MPV 10.0 fL (9.4-12.4) 03/01/24 23:02 Immature Gran % (Auto) 0.2 % (0.0-0.4) 03/01/24 23:02 Neut % (Auto) 74.8 % (45-73) H 03/01/24 23:02 Lymph % (Auto) 16.3 % (20-40) L 03/01/24 23:02 [place] % (Auto) 6.8 % (2-11) 03/01/24 23:02 Eos % (Auto) 1.6 % (0-4) 03/01/24 23:02 Baso % (Auto) 0.3 % (0-2) 03/01/24 23:02 Lymph # (Auto) 2.0 X10*3/uL (1.2-4.9) 03/01/24 23:02 [place] # (Auto) 0.8 X10*3/uL (0.1-1.2) 03/01/24 23:02 Eos # (Auto) 0.2 X10*3/uL (0.0-0.4) 03/01/24 23:02 Baso # (Auto) 0.0 X10*3/uL (0.0-0.2) 03/01/24 23:02 Abs Immat Gran (auto) 0.03 X10*3/uL (0.00-0.03) 03/01/24 23:02 Absolute Neuts (auto) 9.1 x10*3/uL (2.0-8.3) H 03/01/24 23:02 Absolute Nucleated RBC 0.000 X10*3/uL (0.0-0.012) 03/01/24 23:02 Nucleated RBC % (auto) 0.0 /100WBC (0.0-0.2) 03/01/24 23:02 Sodium 140 mmol/L (135-145) 03/01/24 23:02 Potassium 3.2 mmol/L (3.3-5.1) L D 03/01/24 23:02 Chloride 107 mmol/L (96-108) 03/01/24 23:02 Carbon Dioxide 25 mmol/L (22-29) 03/01/24 23:02 Anion Gap 11 (12-20) L 03/01/24 23:02 BUN 13 mg/dL (9-16) 03/01/24 23:02 Creatinine 0.95 mg/dL (0.5-1.4) 03/01/24 23:02 Estim Creat Clear Calc 119.4 03/01/24 23:02 Estimated GFR > 60 03/01/24 23:02 Random Glucose 120 mg/dL (60-115) H 03/01/24 23:02 Calcium 8.7 mg/dL (8.4-10.2) 03/01/24 23:02 Total Bilirubin 0.4 mg/dL (0.0-1.0) 03/01/24 23:02 AST 28 U/L (5-37) 03/01/24 23:02 ALT 33 U/L (0-40) 03/01/24 23:02 Alkaline Phosphatase 47 U/L (39-117) 03/01/24 23:02 Total Protein 7.3 g/dL (6.5-8.0) 03/01/24 23:02 Albumin 4.2 g/dL (3.5-5.0) 03/01/24 23:02 Lipase 18 U/L (8-78) 03/01/24 23:02 Urine Color Yellow 03/02/24 04:52 Urine Appearance Clear 03/02/24 04:52 Urine pH 7.0 (5.0-9.0) 03/02/24 04:52 Ur Specific [place] 1.025 (1.005-1.025) 03/02/24 04:52 Urine Protein Trace mg/dL (Neg-Trace) 03/02/24 04:52 Urine Glucose (UA) Negative mg/dL (Negative) 03/02/24 04:52 Urine Ketones 15 mg/dL (Negative) 03/02/24 04:52 Urine Blood Negative (Negative) 03/02/24 04:52 Urine Nitrite Negative (Negative) 03/02/24 04:52 Ur Leukocyte Esterase Negative (Negative) 03/02/24 04:52 Urine RBC 0-2 /HPF (0-2) 03/02/24 04:52 Urine WBC 0-5 /HPF (0-5) 03/02/24 04:52 Ur Squamous Epith Cells 0-2 /HPF (0-2) 03/02/24 04:52 Urine Bacteria None Seen (None Seen) 03/02/24 04:52 Hyaline Casts 0-2 /LPF (0-2) 03/02/24 04:52 Impressions Abdomen Ultrasound 03/02/24 02:45 IMPRESSION: Cholelithiasis including an 8 mm gallstone within the neck of the gallbladder which may be impacted. Additionally, diffuse gallbladder wall thickening to with a 5 mm is present. Collectively, findings are suspicious for acute cholecystitis. No biliary duct dilatation. Electronically signed by: Temo Guerrero MD 03/02/2024 04:07 AM [facility] [place] Discharge Plan Discharge Anticipated Discharge Date/Time: 03/03/24 09:53 Patient Disposition: Home, Self-Care Discharge Diagnosis: symptomatic gallstones Referrals: Doug Vargas MD [Physician] - Cindy Leiva CNP [Primary Care Provider] - Discharge Medications: Continued omeprazole 20 mg capsule,delayed release(DR/EC) 20 mg PO DAILY@0630 Discharge Orders: Discharge Order (Routine); Ordered 03/03/24 Ordered By: Doug Vargas Diet: Low fat, low cholesterol Activity on Discharge: As tolerated Stand Alone Forms: Patient Portal Discharge page, Work/School Release Print Language: Arabic Activity Restrictions/Additional Instructions: Follow up in office in 1 week to discuss elective cholecystectomy. ([phone]) Call Your Doctor If: ? ? -Your temperature exceeds 101? F? ? ? -You experience excessive pain or swelling ? ? -You have an unexpected reaction to medication ? ? -You experience continued vomiting/nausea Care Plan Goals: Return to baseline health and resume normal activities. Elective cholecystectomy to prevent recurrent attacks. Health Concerns: symptomatic cholelithiasis Plan of Treatment: Low fat diet F/u in office for elective cholecystectomy Assessment: Doing well. Discharge Date/Time: 03/03/24 13:59
== END 2024-03-03 13:59 | disposition home or self-care (01) | DRG 446 ==
LOC: HO.ED 03-02 07:58 → HO.EDOVER 03-02 07:58 → HO.S3 03-02 19:14
PROVIDERS: Emergency Medicine; Admitting Provider Surgery; Emergency Provider Emergency Medicine; PCP Nurse Practitioner Family; Visit Provider Surgery
DX: K80.20 Calculus of gallbladder without cholecystitis without obstruction (principal); K21.9 Gastro-esophageal reflux disease without esophagitis; Z79.899 Other long term (current) drug therapy
CPT/HCPCS: 36415; 76705; 80053; 81001; 83690; 85025; 99221; 99285; J1885; J2270; J7120

== ENCOUNTER → 2024-03-02 07:43 | Outpatient (BNV) | payer OTHER, SELFPAY | PROVIDERS: Admitting Provider Surgery; Emergency Provider Emergency Medicine; PCP Nurse Practitioner Family; Visit Provider Surgery | DX: K80.20 Calculus of gallbladder without cholecystitis without obstruction (principal) | CPT/HCPCS: 99222; 99238; 99499 ==

== ENCOUNTER 2024-03-10 00:26 | Emergency (ER) | payer OTHER, SELFPAY ==
[2024-03-10 00:27] VITALS: BP 118/64; PULSE 86; RESP 16; TEMP 36.6; O2SAT 99; BMI 27.4
[2024-03-10 00:51] LABS: MANUAL DIFF FLAG NO
[2024-03-10 00:53] LABS: Basophils Percent Auto 0.2 % (0-2); Eosinophils Absolute Auto 0.1 X10*3/uL (0.0-0.4); Hematocrit 41.1 % (42.0-52.0); Hemoglobin 14.4 g/dl (14.0-18.0); Imm Gran Abs Auto 0.05 X10*3/uL (0.00-0.03); Imm Gran Pct Auto 0.4 % (0.0-0.4); Lymphocytes Absolute Auto 1.6 X10*3/uL (1.2-4.9); Lymphocytes Percent Auto 12.7 % (20-40); Mean Corpuscular Hemoglobin 29.7 pg (27.0-33.0); Mean Corpuscular Volume 84.7 fL (80.0-98.0); Mean Platelet Volume 10.5 fL (9.4-12.4); Monocytes Absolute Auto 0.7 X10*3/uL (0.1-1.2); Monocytes Percent Auto 5.9 % (2-11); Neutrophils Absolute Auto 9.8 x10*3/uL (2.0-8.3); Neutrophils Percent Auto 79.8 % (45-73); Platelet Count 241 X10*3/uL (160-400); Red Blood Count 4.85 X10*6/uL (4.60-5.80); Red Cell Distribution Width 13.2 % (11.0-16.0); White Blood Count 12.3 X10*3/uL (4.8-10.8)
[2024-03-10 01:19] LABS: Albumin Level 4.5 g/dL (3.5-5.0); Anion Gap 17 (12-20); Aspartate Amino Transferase 31 U/L (5-37); Bilirubin Direct 0.2 mg/dL (0.0-0.5); Bilirubin Total 0.4 mg/dL (0.0-1.0); Blood Urea Nitrogen 14 mg/dL (9-16); Calcium 9.6 mg/dL (8.4-10.2); Carbon Dioxide 23 mmol/L (22-29); Chloride 102 mmol/L (96-108); Creatinine Clr Calc Pharmacy 88.6; Estimated Glomerular Filt Rate > 60; Glucose Random 119 mg/dL (60-115); Lipase 18 U/L (8-78); Potassium 3.9 mmol/L (3.3-5.1); Sodium 138 mmol/L (135-145); Total Protein 7.8 g/dL (6.5-8.0)
[2024-03-10 01:23] LABS: Alanine Aminotransferase 24 U/L (0-40); Alkaline Phosphatase 48 U/L (39-117)
[2024-03-10 02:37] VITALS: BP 125/68; PULSE 85; RESP 16; TEMP 36.7; O2SAT 98
[2024-03-10 04:00] VITALS: BP 106/59; PULSE 85; RESP 16; TEMP 36.6; O2SAT 97
--- NOTE | 2024-03-10 04:19 | ED.ABDPAIN ---
HPI - Abdominal Pain General Chief Complaint: Abdominal Pain Stated Complaint: abd pain Time Seen by Provider: 03/10/24 04:12 Source: patient Mode of arrival: ambulatory Limitations: no limitations History of Present Illness ED Provider: HPI narrative: Patient's history of gallstones plan to get the surgery done today comes here as noticed pain last night in right upper quadrant no nausea no vomiting no diarrhea patient has had impacted stone in the CBD duct which is same as in the past patient is feeling much better pain rankin and plan to have surgery done today in afternoon with normal liver functions Related Data Home Medications ?Medication ?Instructions ?Recorded ?Confirmed omeprazole 20 mg capsule,delayed 20 mg PO DAILY@0630 03/02/24 03/04/24 release Allergies Allergy/AdvReac Type Severity Reaction Status Date / Time No Known Allergies Allergy Verified 03/10/24 00:30 Review of Systems Review of Systems Yes all other systems are reviewed and are negative [facility] Past Medical History Medical History Gallstones Epigastric pain Morbid obesity No pertinent past medical history Surgical History No pertinent past surgical history Social History Social History Household Members: Spouse Housing: House Do you presently have visiting nurse or other home services: No Patient Tobacco Use Status: Never used Tobacco e-Cigarette/Vaping Use: Never Used service: No Current occupational status: employed 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 Cognitive needs: No Hearing needs: No Vision needs: No Physical Exam ED Vital Signs: Vital Signs - 24 hr 03/10/24 00:27 03/10/24 02:37 03/10/24 04:00 Temperature 97.9 F 98.0 F 97.8 F Pulse Rate 86 85 85 Respiratory Rate 16 16 16 Blood Pressure 118/64 125/68 106/59 L Pulse Oximetry 99 98 97 Oxygen Delivery Method Room Air Room Air Room Air 03/10/24 05:05 Temperature 97.8 F Pulse Rate 85 Respiratory Rate 16 Blood Pressure 106/59 L Pulse Oximetry 97 Oxygen Delivery Method Room Air BMI result Body Mass Index 27.4 Appearance: Alert. Oriented X3. No acute distress. Eyes: No pallor or icterus ENT: Pharynx normal. Oral Mucosa moist Neck: Normal inspection. Neck supple. CVS: Normal heart rate and rhythm. Pulses normal. Respiratory: No respiratory distress. Equal air entry bilateral, no wheezing/rales/rhonchi Abdomen: Soft and tenderness in right upper quadrant and epigastric area no rebound tenderness or guarding Bowel sounds are present, no mass palpable, no CVA tenderness Skin: Skin warm and dry. Normal skin color. Normal skin turgor. Extremities: No lower extremity edema. No calf tenderness Neuro: Oriented X 3. Medical Decision Making Medical Decision Making [facility] Narrative: Patient's cholelithiasis with pain in the upper abdomen plan for surgery today at 15:00 at this time patient is pain-free liver functions are normal patient will be going home and coming back for surgery later as scheduled no vomiting or significant pain at this time Differential Diagnosis Differential Diagnoses: The differential diagnosis associated with the presentation includes Lab Data [facility] Lab Attestation statement: I reviewed the patient's lab results. 03/10/24 00:47 03/10/24 00:47 Labs: Lab Results 03/10/24 Range/Units 00:47 WBC 12.3 H (4.8-10.8) X10*3/uL RBC 4.85 (4.60-5.80) X10*6/uL Hgb 14.4 (14.0-18.0) g/dl Hct 41.1 L (42.0-52.0) % MCV 84.7 (80.0-98.0) fL MCH 29.7 (27.0-33.0) pg MCHC 35.0 (31.0-36.0) g/dl RDW 13.2 (11.0-16.0) % Plt Count 241 (160-400) X10*3/uL MPV 10.5 (9.4-12.4) fL Immature Gran % (Auto) 0.4 (0.0-0.4) % Neut % (Auto) 79.8 H (45-73) % Lymph % (Auto) 12.7 L (20-40) % [place] % (Auto) 5.9 (2-11) % Eos % (Auto) 1.0 (0-4) % Baso % (Auto) 0.2 (0-2) % Lymph # (Auto) 1.6 (1.2-4.9) X10*3/uL [place] # (Auto) 0.7 (0.1-1.2) X10*3/uL Eos # (Auto) 0.1 (0.0-0.4) X10*3/uL Baso # (Auto) 0.0 (0.0-0.2) X10*3/uL Abs Immat Gran (auto) 0.05 H (0.00-0.03) X10*3/uL Absolute Neuts (auto) 9.8 H (2.0-8.3) x10*3/uL Absolute Nucleated RBC 0.000 (0.0-0.012) X10*3/uL Nucleated RBC % (auto) 0.0 (0.0-0.2) /100WBC Sodium 138 (135-145) mmol/L Potassium 3.9 D (3.3-5.1) mmol/L Chloride 102 (96-108) mmol/L Carbon Dioxide 23 (22-29) mmol/L Anion Gap 17 (12-20) BUN 14 (9-16) mg/dL Creatinine 1.05 (0.5-1.4) mg/dL Estim Creat Clear Calc 88.6 Estimated GFR > 60 Random Glucose 119 H (60-115) mg/dL Calcium 9.6 D (8.4-10.2) mg/dL Total Bilirubin 0.4 (0.0-1.0) mg/dL Direct Bilirubin 0.2 (0.0-0.5) mg/dL AST 31 (5-37) U/L ALT 24 (0-40) U/L Alkaline Phosphatase 48 (39-117) U/L Total Protein 7.8 (6.5-8.0) g/dL Albumin 4.5 (3.5-5.0) g/dL Lipase 18 (8-78) U/L Independent Interpretation I performed an independent interpretation of an: Ultrasound Radiology Impression Discussion of test interpretation with radiology: I have reviewed the radiologist's reading. Radiologist Impression: [address] [address] Ultrasound Report Signed Patient: Bacilio Rene MR#: [id number] : 1980 Acct:[id number] Age/Sex: 43 / M ADM Date: 03/02/24 Loc: HO.ED Attending Dr: Ordering Physician: Lily Hampton DO Date of Service: 03/02/24 Procedure(s): US abdomen limited Accession Number(s): [id number] cc: BertaLily BELLAMY; Physician,Unknown ~ EXAMINATION: US ABDOMEN LIMITED CLINICAL INFORMATION: Right upper quadrant pain.. COMPARISON: Right upper quadrant ultrasound 02/06/2024. TECHNIQUE: Real-time imaging of the right upper quadrant abdominal viscera. FINDINGS: Pancreas: The visualized pancreatic head and body are normal in appearance. Liver: Normal. Gallbladder: Multiple echogenic gallstones with posterior acoustic shadowing are present within the gallbladder lumen. Findings include an 8 mm gallstone within the neck of the gallbladder. The gallbladder demonstrates diffuse gallbladder wall thickening to with a 5 mm. No pericholecystic fluid collections identified. Common bile duct: 4 mm in diameter. No choledocholithiasis identified. Right kidney: 10.2 cm maximum dimension. No hydronephrosis or renal calculi visualized. No free intraperitoneal fluid collections are identified. US/US abdomen limited IMPRESSION: Cholelithiasis including an 8 mm gallstone within the neck of the gallbladder which may be impacted. Additionally, diffuse gallbladder wall thickening to with a 5 mm is present. Collectively, findings are suspicious for acute cholecystitis. No biliary duct dilatation. Electronically signed by: Temo Guerrero MD 03/02/2024 04:07 AM [facility] [place] Dictated By: Temo Guerrero MD Signed By: <Electronically signed by Temo Guerrero MD in OV> 03/02/24 0407 Medications Administered Discontinued Medications Generic Name Dose Route Start Last Admin Trade Name Freq PRN Reason Stop Dose Admin Morphine Sulfate 15 mg 03/10/24 04:56 03/10/24 05:03 Morphine Sulfate Immed Release 15 Mg Tablet PO 03/10/24 04:57 15 mg ONCE ONE Administration Discharge Plan Discharge Clinical Impression: Biliary colic Patient Disposition: Home, Self-Care Instructions: Biliary Colic (ED) Additional Instructions: Come back for surgery as scheduled today Prescriptions: No Action omeprazole 20 mg capsule,delayed release(DR/EC) 20 mg PO DAILY@0630 Interventions: ED Discharge Assessment Last Done: 03/10/24 05:05 Discharge Date/Time: 03/10/24 05:06 Print Language: Surinamese
[2024-03-10] MEDS: Morphine Sulfate Immed Release 15 MG TABLET PO (05:03)
[2024-03-10 05:05] VITALS: BP 106/59; PULSE 85; RESP 16; TEMP 36.6; O2SAT 97
== END 2024-03-10 05:06 | disposition home or self-care (01) ==
PROVIDERS: Emergency Provider Internal Medicine; PCP Nurse Practitioner Family
DX: K80.50 Calculus of bile duct without cholangitis or cholecystitis without obstruction (principal); R10.2 Pelvic and perineal pain; R10.11 Right upper quadrant pain
CPT/HCPCS: 36415; 80048; 80076; 83690; 85025; 99283; 99284

== ENCOUNTER 2024-03-11 15:13 | Outpatient (AMB) | payer OTHER, SELFPAY ==
--- NOTE | 2024-03-11 15:21 | A.OFFVIS_ITS ---
Vital Signs 03/11/24 15:24 Height 5 ft 8 in Weight 191 lb BMI 29.0 BP 115/69 Blood Pressure Location Rt brachial Position Sitting Pulse 89 Intake Visit Reasons: gallbladder Intake Note: Patient here for follow up gallstones. Was seen at the ER in January and March 02. Patient c/o: RUQ, severe pain that comes and goes. Abd US: 03-02-2024. [employer] Required: No Accompanied by: Spouse Allergies No Known Allergies Allergy (Verified 03/12/24 14:34) HPI HPI gallbladder: Details: Bacilio Quach is a 43 year old male with for follow-up for known gallstones. He had been admitted to the hospital twice for epigastric pain the past 6 weeks. He describes this pain as localized in the epigastric area. He says that the pain actually resolved when he gets to the ER. He denies any nausea or vomiting His imaging studies do show gallstones with question of cholecystitis. He has been discharged on both times admission the following day as his pain had resolved and he did not want to proceed with surgical intervention especially in the presence of atypical symptoms. He does not describe pain in the right upper quadrant and he says that this always just in the epigastric area. He denies other medical problems. 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 Cognitive needs: No Hearing needs: No Vision needs: No Review of Systems Const Denies chills and Denies fever(s) Card Denies chest pain, Denies dyspnea and Denies dyspnea on exertion Resp Denies cough, Denies dyspnea and Denies dyspnea on exertion GI Denies hematochezia and Denies change in bowel habits Denies hematuria and Denies difficulty urinating Musc Denies back pain and Denies limited range of motion Neuro Denies focal weakness and Denies convulsions Psych Denies depression and Denies mood swings Physical Exam Vital Signs: Last Vital Signs Pulse 89 03/11/24 15:24 BP 115/69 03/11/24 15:24 BMI result Body Mass Index 29.0 Const General: comfortable and no acute distress Orientation/consciousness: patient oriented x3 Neck Neck: Yes no lymphadenopathy Resp Auscultation: clear to auscultation bilaterally Cardio Rhythm: regular rhythm GI Palpation (GI): Soft to palpation, nontender and no guarding Neuro General: patient oriented x3 Assessment & Plan Assessment & Plan (1) Gallstones: Code(s): K80.20 - Calculus of gallbladder without cholecystitis without obstruction Category: Medical Plan: He has been admitted twice to the hospital the past 2 months for epigastric pain. His imaging studies do show gallstones. He denies any pain in the right upper quadrant. He says this is pain is always the epigastric area and did not last long I did explain to him that his imaging studies do not show any other pathology. I did offer him the option of proceeding with cholecystectomy in view of the gallstones and possibility of biliary colic causing his pain I reviewed with him the technique of laparoscopic cholecystectomy and possible open cholecystectomy. I explained the risks including but not limited to bleeding, infections, injury to other organs, bile leak, retained stones, as well as the benefits and alternatives. I explained to him what to expect postoperatively. He says that he is to go for surgery and wants to be scheduled. He does understand that there is always a chance that his symptoms may not completely resolve. He has been started already on a proton pump inhibitor and he is uncertain as to whether this is actually helping or not. His was with him during the visit. Medications: New omeprazole 20 mg PO DAILY@0630 60 caps 0RF oxycodone Partial Fill upon patient request. 5 mg PO Q6H PRN 20 tabs 0RF pain Coding Level of Care Code Est Pt Level 3 (10229) Diagnoses Gallstones K80.20
[2024-03-11 15:24] VITALS: BP 115/69; PULSE 89; BMI 29.0
== END 2024-03-11 15:58 | disposition home or self-care (01) ==
PROVIDERS: PCP Nurse Practitioner Family; Visit Provider Surgery
DX: K80.20 Calculus of gallbladder without cholecystitis without obstruction (principal)
CPT/HCPCS: 99213

== ENCOUNTER → 2024-03-11 15:13 | Outpatient (BNVA) | payer OTHER, SELFPAY | PROVIDERS: PCP Nurse Practitioner Family; Visit Provider Surgery ==

== ENCOUNTER 2024-03-12 14:26 | Inpatient (IN) | payer OTHER, SELFPAY ==
[2024-03-12 14:31] VITALS: BP 142/86; PULSE 78; O2SAT 98
[2024-03-12 14:33] VITALS: BP 121/80; PULSE 108; RESP 24; TEMP 36.1; O2SAT 100; BMI 27.4
--- NOTE | 2024-03-12 14:33 | ED.GENADULT ---
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 Patient states it is the same pain that he has had with recent episodes. Patient states he last had some scrambled eggs at approximately noontime several hours, he began to have worsening sharp epigastric pain. He has not tried any medication for this. He is followed by Dr. Vargas and had an office visit yesterday, March 11. Related Data Previous Rx's ?Medication ?Instructions ?Recorded omeprazole 20 mg capsule,delayed 20 mg PO DAILY@0630 #60 caps 03/12/24 release oxycodone 5 mg tablet 5 mg PO Q6H PRN pain #20 tabs 03/12/24 Allergies Allergy/AdvReac Type Severity Reaction Status Date / Time No Known Allergies Allergy Verified 03/12/24 14:34 Review of Systems Constitutional: Constitutional: Denies chills and Denies fever(s) Cardiovascular: Cardiovascular: Denies chest pain, Denies dyspnea, Denies dyspnea on exertion and Denies orthopnea Respiratory: Respiratory: Denies cough, Denies dyspnea and Denies dyspnea on exertion Gastrointestinal: Gastrointestinal: Reports abdominal pain, Reports nausea and Reports vomiting Genitourinary: Genitourinary: Denies difficulty urinating, Denies dysuria and Denies urinary urgency Musculoskeletal: Musculoskeletal: Denies back pain, Denies muscle weakness and Denies numbness Integumentary/Breasts: Skin/Breast: Denies rash Neurologic: Denies focal weakness and Denies numbness Psychiatric: Psychiatric: Denies depression PMF Past Medical History Medical History Gallstones Epigastric pain Morbid obesity No pertinent past medical history Surgical History No pertinent past surgical history Social History Social History Household Members: Spouse Housing: House Do you presently have visiting nurse or other home services: No Patient Tobacco Use Status: Never used Tobacco e-Cigarette/Vaping Use: Never Used Advance Directives: No Advance Directives Information Provided: No service: No Current occupational status: employed 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 Cognitive needs: No Hearing needs: No Vision needs: No Physical Exam ED Vital Signs: Vital Signs - 24 hr 03/12/24 14:33 03/12/24 15:41 03/12/24 18:25 Temperature 96.9 F 98.4 F 98.4 F Pulse Rate 108 H 95 73 Respiratory Rate 24 H 20 20 Blood Pressure 121/80 129/85 135/73 Pulse Oximetry 100 100 100 Oxygen Delivery Method Room Air Room Air Room Air BMI result Body Mass Index 27.4 Appears uncomfortable Const General: cooperative Resp Auscultation: clear to auscultation bilaterally Cardio Rhythm: regular rhythm GI Other: Diffuse tenderness in the epigastric and upper abdomen. No peritoneal signs Palpation (GI): Tenderness to palpation present (GI) Course Course Course Narrative: This is a rapid medical exam performed by Maryann Hidalgo NP: Additional HPI, ROS, PE not included below will be deferred to primary provider. Patient is a 43-year-old Cymraes speaking male presenting with severe upper abdominal pain. Had cholecystectomy scheduled which he did not complete. Appears very uncomfortable. When directed to the waiting room, patient complained of chest pain, will check EKG and troponin. Plan: labs, EKG Reevaluation(s) Reevaluation #1: 4:[address] Li, surgeon on-call. Patient will be admitted to the surgical service. No additional imaging at this time. Medications Administered Discontinued Medications Generic Name Dose Route Start Last Admin Trade Name Freq PRN Reason Stop Dose Admin Sodium Chloride 1,000 mls @ 999 mls/hr 03/12/24 16:45 03/12/24 17:51 Ns IV 03/12/24 17:45 Infused .Q1H1M JESSICA Infusion Morphine Sulfate 4 mg 03/12/24 16:33 03/12/24 16:37 Morphine Sulfate 4 Mg/Ml Cartridge IVPUSH 03/12/24 16:34 4 mg ONCE ONE Administration Protocol Morphine Sulfate 4 mg 03/12/24 17:45 03/12/24 17:50 Morphine Sulfate 4 Mg/Ml Cartridge IVPUSH 03/12/24 17:46 4 mg ONCE ONE Administration Protocol Ondansetron HCl 4 mg 03/12/24 16:33 03/12/24 16:37 Ondansetron Hcl 4 Mg/2 Ml Vial IVPUSH 03/12/24 16:34 4 mg ONCE ONE Administration Medical Decision Making Medical Decision Making [facility] Narrative: 43-year-old male with cholelithiasis, returns with same episode of abdominal pain similar to previous biliary colic episodes. He has been NPO proximally 12:00 p.m.. Patient has likely a surgical candidate and will message surgeon on-call. White blood cells today elevated at 17 which has increased from 12 from 2 days ago. Total bili remains normal. We will provide analgesia and antiemetics. Ultrasound from March 02 demonstrates 8 mm stone in the gallbladder neck with 5 mm gallbladder wall thickening. Differential Diagnosis Differential Diagnoses: The differential diagnosis associated with the presentation includes Cholecystitis Cholelithiasis Dyspepsia Pancreatitis Bowel obstruction Admission/Observation Consideration of admission/observation: Escalation of care including admission/observation considered Consult Healthcare Provider Management of the patient was discussed with: Health Information Clerk Dr. Li. Lab Data [facility] Lab Attestation statement: I reviewed the patient's lab results. 03/12/24 15:28 03/12/24 15:28 Labs: Lab Results 03/12/24 Range/Units 15:28 WBC 17.7 H (4.8-10.8) X10*3/uL RBC 5.14 (4.60-5.80) X10*6/uL Hgb 15.2 (14.0-18.0) g/dl Hct 43.3 (42.0-52.0) % MCV 84.2 (80.0-98.0) fL MCH 29.6 (27.0-33.0) pg MCHC 35.1 (31.0-36.0) g/dl RDW 12.9 (11.0-16.0) % Plt Count 253 (160-400) X10*3/uL MPV 10.8 (9.4-12.4) fL Immature Gran % (Auto) 0.4 (0.0-0.4) % Neut % (Auto) 91.3 H (45-73) % Lymph % (Auto) 4.9 L (20-40) % [place] % (Auto) 3.0 (2-11) % Eos % (Auto) 0.1 (0-4) % Baso % (Auto) 0.3 (0-2) % Lymph # (Auto) 0.9 L (1.2-4.9) X10*3/uL [place] # (Auto) 0.5 (0.1-1.2) X10*3/uL Eos # (Auto) 0.0 (0.0-0.4) X10*3/uL Baso # (Auto) 0.1 (0.0-0.2) X10*3/uL Abs Immat Gran (auto) 0.07 H (0.00-0.03) X10*3/uL Absolute Neuts (auto) 16.2 H (2.0-8.3) x10*3/uL Absolute Nucleated RBC 0.000 (0.0-0.012) X10*3/uL Nucleated RBC % (auto) 0.0 (0.0-0.2) /100WBC Smear Tech's Comments VERIFIED Sodium 140 (135-145) mmol/L Potassium 3.9 (3.3-5.1) mmol/L Chloride 101 (96-108) mmol/L Carbon Dioxide 18 L (22-29) mmol/L Anion Gap 25 H (12-20) BUN 15 (9-16) mg/dL Creatinine 1.00 (0.5-1.4) mg/dL Estim Creat Clear Calc 97.1 Estimated GFR > 60 Random Glucose 144 H (60-115) mg/dL Calcium 10.0 (8.4-10.2) mg/dL Total Bilirubin 0.5 (0.0-1.0) mg/dL AST 26 (5-37) U/L ALT 20 (0-40) U/L Alkaline Phosphatase 54 (39-117) U/L Troponin I High Sens 5.9 (<3.5-35.0) ng/L Total Protein 8.3 H (6.5-8.0) g/dL Albumin 4.6 (3.5-5.0) g/dL Lipase 15 (8-78) U/L Tests considered The following testing was considered but not selected: Consideration additional testing such as ultrasound or CT. Discharge Plan Discharge Clinical Impression: Biliary colic Prescriptions: No Action omeprazole 20 mg capsule,delayed release(DR/EC) 20 mg PO DAILY@0630 Qty: 60 0RF oxycodone 5 mg tablet 5 mg PO Q6H PRN (Reason: pain) Qty: 20 0RF Rx Instructions: Partial Fill upon patient request. Print Language: Cymraes
--- NOTE | 2024-03-12 14:41 | ECG_ITS ---
Test Reason : cp Blood Pressure : / mmHG Vent. Rate : 106 BPM Atrial Rate : 106 BPM P-R Int : 148 ms QRS Dur : 084 ms QT Int : 334 ms P-R-T Axes : 076 040 050 degrees QTc Int : 443 ms Sinus tachycardia Biatrial enlargement Abnormal ECG No previous ECGs available Referred By: Dorothy Hidalgo Electronically Signed By:JACOB MCCLURE
[2024-03-12 15:35] LABS: Basophils Absolute Auto 0.1 X10*3/uL (0.0-0.2); Basophils Percent Auto 0.3 % (0-2); Eosinophils Percent Auto 0.1 % (0-4); Hematocrit 43.3 % (42.0-52.0); Hemoglobin 15.2 g/dl (14.0-18.0); Imm Gran Abs Auto 0.07 X10*3/uL (0.00-0.03); Imm Gran Pct Auto 0.4 % (0.0-0.4); Lymphocytes Absolute Auto 0.9 X10*3/uL (1.2-4.9); Lymphocytes Percent Auto 4.9 % (20-40); MANUAL DIFF FLAG SCAN; Mean Corpuscular HGB Conc 35.1 g/dl (31.0-36.0); Mean Corpuscular Hemoglobin 29.6 pg (27.0-33.0); Mean Corpuscular Volume 84.2 fL (80.0-98.0); Mean Platelet Volume 10.8 fL (9.4-12.4); Monocytes Absolute Auto 0.5 X10*3/uL (0.1-1.2); Neutrophils Absolute Auto 16.2 x10*3/uL (2.0-8.3); Neutrophils Percent Auto 91.3 % (45-73); Platelet Count 253 X10*3/uL (160-400); Red Blood Count 5.14 X10*6/uL (4.60-5.80); Red Cell Distribution Width 12.9 % (11.0-16.0); SCAN SMEAR FLAG 1; White Blood Count 17.7 X10*3/uL (4.8-10.8)
[2024-03-12 15:41] VITALS: BP 129/85; PULSE 95; RESP 20; TEMP 36.9; O2SAT 100
[2024-03-12 15:55] LABS: Troponin-I High Sensitivity 5.9 ng/L (<3.5-35.0)
[2024-03-12 15:58] LABS: Albumin Level 4.6 g/dL (3.5-5.0); Anion Gap 25 (12-20); Aspartate Amino Transferase 26 U/L (5-37); Bilirubin Total 0.5 mg/dL (0.0-1.0); Blood Urea Nitrogen 15 mg/dL (9-16); Carbon Dioxide 18 mmol/L (22-29); Chloride 101 mmol/L (96-108); Creatinine Clr Calc Pharmacy 97.1; Estimated Glomerular Filt Rate > 60; Glucose Random 144 mg/dL (60-115); Lipase 15 U/L (8-78); Potassium 3.9 mmol/L (3.3-5.1); SLIDE REVIEW VERIFIED; Sodium 140 mmol/L (135-145); Total Protein 8.3 g/dL (6.5-8.0)
--- NOTE | 2024-03-12 16:35 | PC.NURSE ---
20G peripheral IV inserted to pt.'s R upper forearm. Tolerated well. Good blood return, and flushes without difficulty or discomfort per pt.
[2024-03-12] MEDS: ondansetron HCL 4 MG/2 ML VIAL IVPUSH (16:37)
[2024-03-12] MEDS: Morphine Sulfate 4 MG/ML CARTRIDGE IVPUSH ×2 (16:37→17:50)
[2024-03-12] MEDS: 0.9 % Sodium Chloride 1,000 ML 999 ML IV (16:38)
[2024-03-12 17:10] LABS: Alanine Aminotransferase 20 U/L (0-40); Alkaline Phosphatase 54 U/L (39-117)
--- NOTE | 2024-03-12 18:08 | PHA.MEDREC ---
Addendum entered by Vicente Hernandez RPh 03/12/24 18:47: MED REC CHECKED BY [facility] Original Note: Pharmacy Consult ? Medication Reconciliation Pharmacy has completed the medication reconciliation. Spoke with family at bedside and they were able to confirm the patients medications. They have on hand the patients Rx bottle for Oxycodone 5mg tab and the fill date is today 03/12 and it was picked up at [facility] on [facility] in [place], the patient confirmed he took that last today around 1500. The patients family at bedside was able to confirm that he is taking the Omeprazole 20mg tab once daily but the patient was in so much pain when I asked the last time he took that medication he was unsure of that.
[2024-03-12 18:25] VITALS: BP 135/73; PULSE 73; RESP 20; TEMP 36.9; O2SAT 100
[2024-03-12] MEDS: HYDROmorphone HCl 2 MG/ML VIAL 1.5 MG IVPUSH (19:55)
[2024-03-12] MEDS: Piperacillin Sodium/Tazobactam 3.375 GM in 0.9 % Sodium Chloride 50 ML IV (19:56)
[2024-03-12] MEDS: Pantoprazole Sodium 40 MG/10 ML VIAL IVPUSH (19:56)
[2024-03-12 20:00] VITALS: BP 128/79; PULSE 88; RESP 18; TEMP 37.2; O2SAT 99
[2024-03-12] MEDS: 0.9 % Sodium Chloride 1,000 ML 100 ML IVCONT (21:36)
--- NOTE | 2024-03-12 21:51 | P.HPGS_ITS ---
History of Present Illness History of Present Illness Date of Service: 03/12/24 Chief complaint: Abdo pain Narrative: Bacilio Quach is a 43 year old male with known gallstones who has had over the last month several episodes of biliary colic and probable cholecystitis. He was admitted in the hospital and was planning to undergo laparoscopic cholecystectomy and was on the add on list but then got delayed and the patient preferred to leave and book an elective opportunity. He saw Dr. Vargas yesterday in the office and the plan was to try to book a time but since then he has been feeling worse after eating scrambled eggs this morning. He has been having more epigastric pain and nausea. As a result he comes in now to the emergency room. His white count now is elevated to 17,000 his LFTs are normal. He is complaining of epigastric pain. He has had several ultrasounds in the CT scan done within the last month which shows thickened gallbladder with an impacted stone at the neck normal common bile duct size Review of Systems Review of Systems: Yes all other systems are reviewed and are negative [facility] Past Medical History Medical History Gallstones Epigastric pain Morbid obesity No pertinent past medical history Surgical History Surgical History No pertinent past surgical history Social History Social History Household Members: Family Housing: House Do you presently have visiting nurse or other home services: Yes Patient Tobacco Use Status: Never used Tobacco e-Cigarette/Vaping Use: Never Used Use of substances other than those prescribed or required for medical reasons: No Have you been hit, kicked, punched, or otherwise hurt by someone within the past year? If so, by whom?: No Do you feel safe in your current relationship?: Yes Is there a partner from a previous relationship who is making you feel unsafe now?: No Are you made to feel afraid or neglected: No Advance Directives: No Advance Directives Information Provided: No Do you have a plan to hurt others: No Plan Recently lost weight without trying: No Nutrition Risks: No Nutritional Risk Poor oral hygiene: No service: No Current occupational status: employed Current occupation: [employer]. Cognitive needs: No Hearing needs: No Vision needs: No Meds Allergies Allergy/AdvReac Type Severity Reaction Status Date / Time No Known Allergies Allergy Verified 03/12/24 14:34 Active Medications: Current Medications Acetaminophen (Acetaminophen 325 Mg Tablet) 650 mg PO Q6H PRN PRN Reason: Pain, Mild (Pain Scale 1-3), fever or headache Hydromorphone HCl (Hydromorphone Hcl 1 Mg/Ml Syringe) 1 mg IVPUSH Q4H PRN; Protocol PRN Reason: Pain, Severe (Pain Scale 7-10) Sodium Chloride (Ns) 1,000 mls @ 100 mls/hr IVCONT .Q10H [facility] Last Admin: 03/12/24 21:36 Dose: 100 mls/hr Piperacillin Sod/Tazobactam (Sod 3.375 gm/ Sodium Chloride) 50 mls @ 100 mls/hr IV Q6H [facility] Last Infusion: 03/12/24 20:26 Dose: Infused Ketorolac Tromethamine (Ketorolac Tromethamine 15 Mg/Ml Vial) 15 mg IVPUSH Q6H [facility] Stop: 03/17/24 21:59 Melatonin (Melatonin 3 Mg Tablet) 6 mg PO BEDTIME PRN PRN Reason: Insomnia Ondansetron HCl (Ondansetron Hcl 4 Mg/2 Ml Vial) 4 mg IVPUSH Q8H PRN PRN Reason: Nausea and Vomiting Pantoprazole Sodium (Pantoprazole Sodium 40 Mg/10 Ml Vial) 40 mg IVPUSH DAILY [facility] Last Admin: 03/12/24 19:56 Dose: 40 mg Sodium Chloride (0.9 % Sodium Chloride Flush 3 Ml Syringe) 3 ml IVFLUSH QSHIFT [facility] Physical Exam Vital Signs: Vital Signs: Last Vital Signs Temp 98.9 F 03/12/24 20:00 Pulse 88 03/12/24 20:00 Resp 18 03/12/24 20:00 BP 128/79 03/12/24 20:00 Pulse Ox 99 03/12/24 20:00 O2 Del Method Room Air 03/12/24 20:00 BMI result Body Mass Index 27.4 Const: General: cooperative and acute distress moderate HEENT: Other: Nonicteric Resp: Effort & Inspection: normal respiratory effort Auscultation: clear to auscultation bilaterally Cardio: Rate: regular rate Rhythm: regular rhythm GI: Other: Abdomen is soft but he is tender in the epigastric to right upper quadrant with some guarding no peritoneal sign Skin: Other: Nonicteric Results Results Labs: Short CBC 03/12/24 Range/Units 15:28 WBC 17.7 H (4.8-10.8) X10*3/uL Hgb 15.2 (14.0-18.0) g/dl Hct 43.3 (42.0-52.0) % Plt Count 253 (160-400) X10*3/uL BMP 03/12/24 15:28 Sodium 140 Potassium 3.9 Chloride 101 Carbon Dioxide 18 L BUN 15 Creatinine 1.00 Calcium 10.0 Liver Function 03/12/24 Range/Units 15:28 Total Bilirubin 0.5 (0.0-1.0) mg/dL AST 26 (5-37) U/L ALT 20 (0-40) U/L Alkaline Phosphatase 54 (39-117) U/L Albumin 4.6 (3.5-5.0) g/dL Additional studies: Ordering Physician: Lily Hampton DO Date of Service: 03/02/24 Procedure(s): US abdomen limited Accession Number(s): [id number] cc: Lily Hampton DO; Physician,Unknown ~ EXAMINATION: US ABDOMEN LIMITED CLINICAL INFORMATION: Right upper quadrant pain.. COMPARISON: Right upper quadrant ultrasound 02/06/2024. TECHNIQUE: Real-time imaging of the right upper quadrant abdominal viscera. FINDINGS: Pancreas: The visualized pancreatic head and body are normal in appearance. Liver: Normal. Gallbladder: Multiple echogenic gallstones with posterior acoustic shadowing are present within the gallbladder lumen. Findings include an 8 mm gallstone within the neck of the gallbladder. The gallbladder demonstrates diffuse gallbladder wall thickening to with a 5 mm. No pericholecystic fluid collections identified. Common bile duct: 4 mm in diameter. No choledocholithiasis identified. Right kidney: 10.2 cm maximum dimension. No hydronephrosis or renal calculi visualized. No free intraperitoneal fluid collections are identified. US/US abdomen limited IMPRESSION: Cholelithiasis including an 8 mm gallstone within the neck of the gallbladder which may be impacted. Additionally, diffuse gallbladder wall thickening to with a 5 mm is present. Collectively, findings are suspicious for acute cholecystitis. No biliary duct dilatation. Electronically signed by: Temo Guerrero MD 03/02/2024 04:07 AM EST Dictated By: Temo Guerrero MD Signed By: <Electronically signed by Temo Guerrero MD in OV> 03/02/24 0407 DD/ 024 TD/TT: 03/02/24314 Assistant Chief Of Police: EF Assessment and Plan (1) Biliary colic: Status: Acute Plan 43-year-old male with known biliary colic episodes and probable acute on chronic cholecystitis comes in now with worsening abdominal pain after seeing surgery yesterday in the office to try to schedule elective lap salome. Now comes in f eeling worse. White count is elevated to 17,000 LFTs are normal. We will plan to admit NPO IV fluid resuscitation IV antibiotics and carry out laparoscopic cholecystectomy tomorrow morning. Risks and benefits were discussed with the patient who understands and agrees with the above plan. Quality Stroke Does the patient have a stroke diagnosis?: No VTE Prior VTE?: No VTE Risk Level:: Surgical - low VTE Device Contraindication: N/A - Device Ordered VTE Drug Contraindication: Treatment Not Indicated Procedures Date of Service Date of Service: 03/12/24
[2024-03-12] MEDS: Ketorolac Tromethamine 15 MG/ML VIAL IVPUSH (22:09)
[2024-03-12] MEDS: HYDROmorphone HCl 1 MG/ML SYRINGE IVPUSH (22:53)
[2024-03-12 23:36] VITALS: BP 117/63; PULSE 100; RESP 16; TEMP 37; O2SAT 96
[2024-03-13] VITALS (11 sets, daily range): BP systolic 108–123; BP diastolic 63–77; PULSE 80–100; RESP 16–18; TEMP 36.3–37.7; O2SAT 95–100
[2024-03-13] MEDS: Piperacillin Sodium/Tazobactam 3.375 GM in 0.9 % Sodium Chloride 50 ML IV ×4 (01:39→20:22)
[2024-03-13] MEDS: HYDROmorphone HCl 1 MG/ML SYRINGE IVPUSH (03:06)
[2024-03-13] MEDS: Ketorolac Tromethamine 15 MG/ML VIAL IVPUSH ×4 (03:56→21:45)
[2024-03-13 06:57] LABS: Alanine Aminotransferase 19 U/L (0-40); Albumin Level 3.9 g/dL (3.5-5.0); Alkaline Phosphatase 45 U/L (39-117); Anion Gap 13 (12-20); Aspartate Amino Transferase 27 U/L (5-37); Bilirubin Total 0.7 mg/dL (0.0-1.0); Blood Urea Nitrogen 7 mg/dL (9-16); Carbon Dioxide 23 mmol/L (22-29); Chloride 107 mmol/L (96-108); Creatinine Clr Calc Pharmacy 106.8; Estimated Glomerular Filt Rate > 60; Glucose Random 79 mg/dL (60-115); Sodium 139 mmol/L (135-145); Total Protein 7.1 g/dL (6.5-8.0)
[2024-03-13 07:03] LABS: Calcium 8.8 mg/dL (8.4-10.2)
[2024-03-13] MEDS: 0.9 % Sodium Chloride 1,000 ML 100 ML IVCONT ×2 (07:34→20:22)
[2024-03-13] MEDS: Pantoprazole Sodium 40 MG/10 ML VIAL IVPUSH (08:25)
--- NOTE | 2024-03-13 14:59 | P.CONAN_ITS ---
[facility] Active Problems Active Problems: All Active Problems Biliary colic (Acute) Gallstones (Acute) Symptomatic cholelithiasis (Acute) Leukocytosis (Acute) Epigastric pain (Acute) Morbid obesity (Acute) Gastritis (Acute) GERD (gastroesophageal reflux disease) (Acute) Obesity (BMI 30.0-34.9) (Acute) Normal physical examination, routine (Acute) Laboratory tests ordered as part of a complete physical exam (CPE) (Acute) Past Medical History Medical History Gallstones Epigastric pain Morbid obesity No pertinent past medical history Family History Family history of problems with anesthesia: No Surgical History Surgical History No pertinent past surgical history History of Problems with Anesthesia: No Social History Social History Household Members: Family Housing: House Do you presently have visiting nurse or other home services: Yes Patient Tobacco Use Status: Never used Tobacco e-Cigarette/Vaping Use: Never Used Use of substances other than those prescribed or required for medical reasons: No Currently Displaying Signs/Symptoms of Drug Intoxication Withdrawal: No Have you been hit, kicked, punched, or otherwise hurt by someone within the past year? If so, by whom?: No Do you feel safe in your current relationship?: Yes Is there a partner from a previous relationship who is making you feel unsafe now?: No Are you made to feel afraid or neglected: No Advance Directives: No Advance Directives Information Provided: No Do you have a plan to hurt others: No Plan Recently lost weight without trying: No Nutrition Risks: No Nutritional Risk Poor oral hygiene: No service: No Current occupational status: employed Current occupation: [employer]. Cognitive needs: No Hearing needs: No Vision needs: No Meds Allergies Allergy/AdvReac Type Severity Reaction Status Date / Time No Known Allergies Allergy Verified 03/12/24 14:34 Active Medications: Current Medications Acetaminophen (Acetaminophen 325 Mg Tablet) 650 mg PO Q6H PRN PRN Reason: Pain, Mild (Pain Scale 1-3), fever or headache Fentanyl (Fentanyl Citrate/Pf 100 Mcg/2 Ml Vial) 50 mcg IVPUSH Q5M PRN PRN Reason: Pain, Moderate to Severe (Pain Scale 4-10) Stop: 03/13/24 18:26 Hydromorphone HCl (Hydromorphone Hcl 1 Mg/Ml Syringe) 1 mg IVPUSH Q4H PRN; Protocol PRN Reason: Pain, Severe (Pain Scale 7-10) Last Admin: 03/13/24 03:06 Dose: 1 mg Sodium Chloride (Ns) 1,000 mls @ 100 mls/hr IVCONT .Q10H [facility] Last Infusion: 03/13/24 12:30 Dose: 0 mls/hr Piperacillin Sod/Tazobactam (Sod 3.375 gm/ Sodium Chloride) 50 mls @ 100 mls/hr IV Q6H [facility] Last Infusion: 03/13/24 08:30 Dose: Infused Ketorolac Tromethamine (Ketorolac Tromethamine 15 Mg/Ml Vial) 15 mg IVPUSH Q6H [facility] Stop: 03/17/24 21:59 Last Admin: 03/13/24 09:19 Dose: 15 mg Melatonin (Melatonin 3 Mg Tablet) 6 mg PO BEDTIME PRN PRN Reason: Insomnia Naloxone HCl (Naloxone Hcl 0.4 Mg/Ml Vial) 0.04 mg IVPUSH Q5M PRN PRN Reason: Excessive sedation or RR < 8 Ondansetron HCl (Ondansetron Hcl 4 Mg/2 Ml Vial) 4 mg IVPUSH Q8H PRN PRN Reason: Nausea and Vomiting Ondansetron HCl (Ondansetron Hcl 4 Mg/2 Ml Vial) 4 mg IVPUSH ONCE PRN PRN Reason: Nausea and Vomiting Stop: 03/13/24 18:26 Pantoprazole Sodium (Pantoprazole Sodium 40 Mg/10 Ml Vial) 40 mg IVPUSH DAILY [facility] Last Admin: 03/13/24 08:25 Dose: 40 mg Sodium Chloride (0.9 % Sodium Chloride Flush 3 Ml Syringe) 3 ml IVFLUSH QSHIFT [facility] Last Admin: 03/13/24 07:24 Dose: Not Given Exam Height,Weight and Vital Signs: Height 5 ft 7 in Weight 79.379 kg Last Vital Signs Temp 99.3 F 03/13/24 14:54 Pulse 98 03/13/24 14:54 Resp 16 03/13/24 14:54 BP 122/71 03/13/24 14:54 Pulse Ox 99 03/13/24 14:54 O2 Del Method Room Air 03/13/24 14:54 Pertinent Lab Results Pertinent Lab Results: Laboratory Tests 03/12/24 03/13/24 15:28 06:32 WBC 17.7 H RBC 5.14 Hgb 15.2 Hct 43.3 MCV 84.2 MCH 29.6 MCHC 35.1 RDW 12.9 Plt Count 253 MPV 10.8 Immature Gran % (Auto) 0.4 Neut % (Auto) 91.3 H Lymph % (Auto) 4.9 L [place] % (Auto) 3.0 Eos % (Auto) 0.1 Baso % (Auto) 0.3 Lymph # (Auto) 0.9 L [place] # (Auto) 0.5 Eos # (Auto) 0.0 Baso # (Auto) 0.1 Abs Immat Gran (auto) 0.07 H Absolute Neuts (auto) 16.2 H Absolute Nucleated RBC 0.000 Nucleated RBC % (auto) 0.0 Smear Tech's Comments VERIFIED Hold Purple Top SEE NOTE Sodium 140 139 Potassium 3.9 4.0 Chloride 101 107 Carbon Dioxide 18 L 23 Anion Gap 25 H 13 BUN 15 7 L Creatinine 1.00 0.91 Estim Creat Clear Calc 97.1 106.8 Estimated GFR > 60 > 60 Random Glucose 144 H 79 Calcium 10.0 8.8 D Total Bilirubin 0.5 0.7 AST 26 27 ALT 20 19 Alkaline Phosphatase 54 45 Troponin I High Sens 5.9 Total Protein 8.3 H 7.1 Albumin 4.6 3.9 Lipase 15 Airway Mallampati Class: III TM Dist: >3cm Neck ROM: Full Assessment and Plan Assessment Anesthesia Assessment: Anesthesia Plan Discussed and Chart Reviewed Final Anesthetic Review Family History of Problems with Anesthesia: No History of Problems with Anesthesia: No NPO: Yes ASA Class: Emergency Final Preanesthetic Review: No Changes in Pt Med Stat, Meds/Allgs Chart Reviewed, Consent Obtained/Reviewed and Anes Risks/Benef Reviewed Patient Risk: Intermediate Procedure Risk: Intermediate Anesthetic Plan Anesthetic Plan: GA Disposition: Standard PACU
--- NOTE | 2024-03-13 15:46 | MHC.CM.PN ---
Addendum entered by Miracle Jefferson 03/14/24 12:30: PT TO DC HOME TODAY WITH NO SERVICES Original Note: PT LIVES WITH HIS AND IS INDEPENDENT WITH CARE NO DME OR SERVICES DECLINES HCP PCP: PRASHANT ABREU DCP: HOME VIA PRIVATE TRANSPORT
[2024-03-13] MEDS: 0.9 % Sodium Chloride Flush 3 ML SYRINGE IVFLUSH (15:53)
[2024-03-13] MEDS: oxyCODONE HCl Immed Release 5 MG TABLET 10 MG PO (18:14)
[2024-03-14] MEDS: Piperacillin Sodium/Tazobactam 3.375 GM in 0.9 % Sodium Chloride 50 ML IV ×2 (02:06→08:10)
[2024-03-14] MEDS: Ketorolac Tromethamine 15 MG/ML VIAL IVPUSH ×2 (03:54→09:26)
[2024-03-14 04:00] VITALS: BP 109/60; PULSE 66; RESP 18; TEMP 36.4; O2SAT 98
[2024-03-14] MEDS: 0.9 % Sodium Chloride 1,000 ML 100 ML IVCONT (05:49)
[2024-03-14 07:43] VITALS: BP 106/59; PULSE 87; RESP 16; TEMP 36.4; O2SAT 99
[2024-03-14] MEDS: Pantoprazole Sodium 40 MG/10 ML VIAL IVPUSH (08:06)
[2024-03-14 11:49] VITALS: BP 105/56; PULSE 78; RESP 16; TEMP 36.5; O2SAT 98
--- NOTE | 2024-03-14 12:33 | PM.DS ---
DS: Providers Provider Date of Service: 03/14/24 Date of admission: 03/12/24 19:26 Date of discharge: 03/14/24 Primary care physician: Cindy Leiva CNP Admitting clinician: Tiffany Li Attending physician on discharge: Tiffany Li DS: Diagnosis Discharge Diagnosis (1) Biliary colic: Status: Acute (2) Cholecystitis: Status: Acute DS: Summary Hospital Course Hospital Course: pt admitted with acute cholecystitis and [facility] for acute on chronic cholecystitis. did well with slow advance of diet and po apin meds and iv antibx dc home no po antibx and just some po pain meds oxycodone to transition to advil/ibuprofen Status at Discharge Functional status at discharge: independent ambulation Overall status at discharge: patient is progressing back to baseline Time Attestation Total time managing care of this patient today: 25 mintues. Discharge Coordination Time (in mins): 25 Quality: Safe Use of Opioids Does Pt have an Active Cancer Diagnosis on the Problem List?: No Quality: Stroke Does the patient have a stroke diagnosis?: No Physical Exam Vital Signs: Vital Signs: Last Vital Signs Temp 97.7 F 03/14/24 11:49 Pulse 78 03/14/24 11:49 Resp 16 03/14/24 11:49 BP 105/56 L 03/14/24 11:49 Pulse Ox 98 03/14/24 11:49 O2 Del Method Room Air 03/14/24 11:49 O2 Flow Rate 2 03/13/24 15:09 BMI result Body Mass Index 27.4 GI: Other: soft nondistended incisional tenderness DS: Data Data Completed and Pending Pending studies at discharge: Pending at discharge 03/13/24 14:56 Surgical [PTH] Routine Discharge Plan Discharge Anticipated Discharge Date/Time: 03/14/24 12:27 Patient Disposition: Home, Self-Care Discharge Diagnosis: cholecystitis Referrals: Cindy Leiva CNP [Primary Care Provider] - 1 Week Discharge Medications: New oxycodone 5 mg Tablet 5 mg PO Q4H Qty: 10 0RF Rx Instructions: Partial Fill upon patient request. Continued omeprazole 20 mg capsule,delayed release(DR/EC) 20 mg PO DAILY@0630 Qty: 60 0RF oxycodone 5 mg tablet 5 mg PO Q6H PRN (Reason: pain) Qty: 20 0RF Rx Instructions: Partial Fill upon patient request. Discharge Orders: Discharge Order (Routine); Ordered 03/14/24 Ordered By: Tiffany Li Activity on Discharge: No heavy lifting Stand Alone Forms: Patient Portal Discharge page Print Language: Kiswahili Care Plan Goals: to advance diet low fat easy diet Health Concerns: call with increased abdo pain or nausea and vomiting or fever and chills call redness at wound sites Plan of Treatment: low fat to easy diet next few days sponge bath until friday then can have a shower with dressings off call Dr Vargas office for fu appointment next week Assessment: pt doing well sp lap salome or cholecystitis - by next day tolerating po diet and po pain meds and drain output serous. dc drain and dc home pt and family understand and agree with plan
--- NOTE | 2024-05-04 10:49 | P.OP_ITS ---
Operative Note Operative Note Date of Service: 03/13/24 Narrative: Preop diagnosis--acute cholecystitis Postop diagnosis--acute cholecystitis Procedure--laparoscopic [facility]zachary Patient is a 43-year-old male who has been known to have acute cholecystitis on and off biliary colic and came into the hospital but his surgery got canceled so he went back home was supposed to have an elective day to have this gallbladder removed but now bounces back to the emergency room complaining of right upper quadrant pain elevated white count etc.. --Findings-- acutely inflamed gallbladder Procedure-- Patient was brought to the operative room under Anesthesia guidance was intubated. He had compression stockings placed before induction received preoperative antibiotics. His abdomen was prepped and draped in standard surgical fashion. Infraumbilical incision was created and Meeks trocar introduced pneumoperitoneum established to 15 mmHg pressure. Three 5 mm ports were placed under direct visualization using local 1 in the epigastric to in the right upper quadrant area. Gallbladder was identified in the right upper quadrant was not inflamed thickened and omental fatty tissue was bluntly dissected off of it. Here now dissecting through to the triangle of Calot after retracting the gallbladder superiorly and laterally the cystic duct cystic artery we identified and clipped to down 1 up and then with the hook cautery the gallbladder was removed from the liver base. Hemostasis was achieved by cauterizing several bleeders on the base. The gallbladder was removed from the infraumbilical port site pneumoperitoneum then reestablished in the area in the right upper quadrant reexamined. Cystic duct cystic artery clips were fine. Liver base was good. Ports were removed under direct visualization and the infraumbilical port closed with a pursestring 0 Vicryl suture and then Monocryl used to close the skin edges with Steri-Strips at the end of the case all sponge instrument needle counts were correct estimated blood loss was about 15 cc specimens sent was the gallbladder
== END 2024-03-14 14:10 | disposition home or self-care (01) | DRG 419 ==
LOC: HO.ED 19:23 → HO.EDOVER 19:34 → HO.S3 19:52
PROVIDERS: Registered Nurse Emergency; Admitting Provider Surgery; Emergency Provider Emergency Medicine; PCP Nurse Practitioner Family; Visit Provider Surgery
PROC: 0FT44ZZ Resection of Gallbladder, Percutaneous Endoscopic Approach (ICD-10-PCS; CPT 47562; principal; 2024-03-13 12:30)
DX: K80.46 Calculus of bile duct with acute and chronic cholecystitis without obstruction (principal)
CPT/HCPCS: 47562; 36415; 80053; 83690; 84484; 85025; 88304; 93005; 99221; 99285; J0131; J1100; J1171; J1885; J2003; J2004; J2250; J2270; J2405; J2470; J2543; J2704; J3010

== ENCOUNTER → 2024-03-12 14:41 | Outpatient (BNV) | payer OTHER, SELFPAY | PROVIDERS: Admitting Provider Surgery; Emergency Provider Emergency Medicine; PCP Nurse Practitioner Family; Visit Provider Internal Medicine | DX: R00.0 Tachycardia, unspecified (principal); I51.7 Cardiomegaly | CPT/HCPCS: 93010 ==

== ENCOUNTER → 2024-03-12 19:26 | Outpatient (BNV) | payer OTHER, SELFPAY | PROVIDERS: Admitting Provider Surgery; Emergency Provider Emergency Medicine; PCP Nurse Practitioner Family; Visit Provider Surgery | DX: K80.50 Calculus of bile duct without cholangitis or cholecystitis without obstruction (principal); K81.9 Cholecystitis, unspecified | CPT/HCPCS: 99024; 99222 ==

== ENCOUNTER 2024-03-18 08:47 | Outpatient (AMB) | payer OTHER, SELFPAY ==
--- NOTE | 2024-03-18 09:07 | MHC.OFFVIS ---
Vital Signs 03/18/24 09:12 Height 5 ft 6 in Weight 187 lb 6 oz BMI 30.2 Intake Visit Reasons: s/p laparoscopic cholecystectomy Intake Note: This patient presents for post-op assessment status post laparoscopic cholecystectomy. Pt c/o; reports some discomfort umbilical incision, reports occasional RUQ discomfort when inhaling otherwise he feels well. Orthodontic Lab Technician Required: Yes Orthodontic Lab Technician Language: Enrollment Management Director Services: Orthodontic Lab Technician Present Orthodontic Lab Technician Name: Renita Information Interpreted: non-clinical & clinical Accompanied by: Spouse Allergies No Known Allergies Allergy (Verified 03/18/24 09:13) Medication List - Last Reconciled 03/18/24 by Doug Vargas MD omeprazole 20 mg PO DAILY@0630 oxycodone 5 mg PO Q4H oxycodone 5 mg PO Q6H PRN HPI HPI s/p laparoscopic cholecystectomy: Details: He has known gallstones and was scheduled to undergo laparoscopic cholecystectomy as an outpatient. However, he went back to the ER last 03/13/2024. He underwent laparoscopic cholecystectomy with Dr. Li last 03/14/2024. He says he has been doing well since then. He has good oral intake. He denies significant pain. 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 Cognitive needs: No Hearing needs: No Vision needs: No Review of Systems Const Denies chills and Denies fever(s) Resp Denies cough GI Denies vomiting Physical Exam Vital Signs: BMI result Body Mass Index 30.2 Const General: comfortable and no acute distress Eyes Other: Nonicteric Resp Effort & Inspection: normal respiratory effort GI Other: All incisions clean and dry Palpation (GI): Soft to palpation, not firm and no guarding Assessment & Plan Assessment & Plan (1) Symptomatic cholelithiasis: Code(s): K80.20 - Calculus of gallbladder without cholecystitis without obstruction Category: Medical Plan: Status post laparoscopic cholecystectomy. He is doing very well postoperatively. All incisions are well healed. I advised him to avoid lifting anything more than 20 lb for at least 3 more weeks. He can otherwise follow up on a p.r.n. basis. Coding Level of Care Code Global (36433) Diagnoses Symptomatic cholelithiasis K80.20
[2024-03-18 09:12] VITALS: BMI 30.2
== END 2024-03-18 09:26 | disposition home or self-care (01) ==
PROVIDERS: PCP Nurse Practitioner Family; Visit Provider Surgery
DX: K80.20 Calculus of gallbladder without cholecystitis without obstruction (principal)
CPT/HCPCS: 99024

== ENCOUNTER → 2024-03-18 08:47 | Outpatient (BNVA) | payer OTHER, SELFPAY ==
--- NOTE | 2024-05-04 10:49 | W.PM.OPN ---
Operative Note Operative Note Date of Service: 03/13/24 Narrative: Preop diagnosis--acute cholecystitis Postop diagnosis--acute cholecystitis Procedure--[facility]aroscopic [facility] Anesthesia--zachary Patient is a 43-year-old male who has been known to have acute cholecystitis on and off biliary colic and came into the hospital but his surgery got canceled so he went back home was supposed to have an elective day to have this gallbladder removed but now bounces back to the emergency room complaining of right upper quadrant pain elevated white count etc.. --Findings-- acutely inflamed gallbladder Procedure-- Patient was brought to the operative room under Anesthesia guidance was intubated. He had compression stockings placed before induction received preoperative antibiotics. His abdomen was prepped and draped in standard surgical fashion. Infraumbilical incision was created and Meeks trocar introduced pneumoperitoneum established to 15 mmHg pressure. Three 5 mm ports were placed under direct visualization using local 1 in the epigastric to in the right upper quadrant area. Gallbladder was identified in the right upper quadrant was not inflamed thickened and omental fatty tissue was bluntly dissected off of it. Here now dissecting through to the triangle of Calot after retracting the gallbladder superiorly and laterally the cystic duct cystic artery we identified and clipped to down 1 up and then with the hook cautery the gallbladder was removed from the liver base. Hemostasis was achieved by cauterizing several bleeders on the base. The gallbladder was removed from the infraumbilical port site pneumoperitoneum then reestablished in the area in the right upper quadrant reexamined. Cystic duct cystic artery clips were fine. Liver base was good. Ports were removed under direct visualization and the infraumbilical port closed with a pursestring 0 Vicryl suture and then Monocryl used to close the skin edges with Steri-Strips at the end of the case all sponge instrument needle counts were correct estimated blood loss was about 15 cc specimens sent was the gallbladder
== END ==
PROVIDERS: PCP Nurse Practitioner Family; Visit Provider Surgery
DX: Z09 Encounter for follow-up examination after completed treatment for conditions other than malignant neoplasm (principal); Z87.19 Personal history of other diseases of the digestive system; D72.829 Elevated white blood cell count, unspecified; Z90.49 Acquired absence of other specified parts of digestive tract
CPT/HCPCS: 96127

== ENCOUNTER 2024-03-18 14:53 | Outpatient (AMB) | payer OTHER, SELFPAY ==
--- NOTE | 2024-03-18 14:55 | MHC.PC.OV ---
Vital Signs 03/18/24 15:00 Height 5 ft 6 in Weight 182 lb 6 oz BMI 29.4 BP 103/59 L Blood Pressure Location Rt brachial Position Sitting Respiration 16 Pulse 76 Pulse Source Pulse Oximeter Temp 98.5 F Temp Source Oral Pulse Oximetry (%) 97 Oxygen Delivery Method Room Air Intake Visit Reasons: C /[facility] Intake Note: patient here for [facility] Corner Brace Block Machine Operator Required: Yes Corner Brace Block Machine Operator Language: Substation Superintendent Name: John [id number] Information Interpreted: non-clinical & clinical Allergies No Known Allergies Allergy (Verified 03/18/24 15:10) Tobacco use date assessed: 03/18/24 Dental Screening Dental Screen Date: 03/18/24 Did you have a dental visit in the last 12 months?: No Did you have a dental problem in the last 6 months where you did not have access to dental care?: No Was dental information given to patient?: Patient has dentist HPI HPI Comments History of Present Illness Details 43-year-old, Bahamian-speaking male presents for the transitional care management follow-up for cholecystectomy. He has history of gallstones and was scheduled to undergo laparoscopic cholecystectomy as an outpatient. However, he went back to [facility] ED on 03/13/2024. He underwent laparoscopic cholecystectomy with Dr. Li on 03/14/2024. He denies pain or acute symptoms at this time. He has been taking advil as needed. No longer on antibiotics. DS: Summary Hospital Course Hospital Course: pt admitted with acute cholecystitis and [facility] for acute on chronic cholecystitis. did well with slow advance of diet and po apin meds and iv antibx dc home no po antibx and just some po pain meds oxycodone to transition to advil/ibuprofen [facility] Medical History Gallstones Epigastric pain Morbid obesity No pertinent past medical history Surgical History No pertinent past surgical history Social History Household Members: Family Housing: House Do you presently have visiting nurse or other home services: Yes Patient Tobacco Use Status: Never used Tobacco e-Cigarette/Vaping Use: Never Used Second Hand Smoke Exposure: No service: No Current occupational status: employed 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 Cognitive needs: No Hearing needs: No Vision needs: No Questionnaire PHQ-9 Over the last 2 weeks, how often have you been bothered by any of the following problems? 1. Little interest or pleasure in doing things: not at all 2. Feeling down, depressed, or hopeless: not at all 3. Trouble falling or staying asleep, or sleeping too much: not at all 4. Feeling tired or having little energy: not at all 5. Poor appetite or overeating: not at all 6. Feeling bad about yourself - or that you are a failure or have let yourself or your family down: not at all 7. Trouble concentrating on things, such as reading the newspaper or watching television: not at all 8. Moving or speaking so slowly that other people could have noticed. Or the opposite - being so fidgety or restless that you have been moving around a lot more than usual: not at all 9. Thoughts that you would be better off or of hurting yourself in some way: not at all Total score: 0 Depression Screening Interpretation: Negative Depression Screening Done: Yes 74066 - PHQ-9 Billing: Yes Source: Developed by Drs. Stephen Moscoso, Agatha Ibrahim, Lars Mitchell and colleagues, with an educational renita from [employer]. Thrive Questionnaire Date Thrive assessed: 03/18/24 I am a: Patient What is your living situation today?: I have a steady place to live Within the past 12 months, did the food you bought not last and you didn't have the money to get more?: I choose not to answer this question Within the past 12 months, did you worry whether your food would run out before you got money to buy more?: Never true Do you have trouble paying for medicines?: No Do you have trouble getting transportation to medical appointments?: No Do you have trouble paying your heating and electricity bill?: No Do you have trouble taking care of your child, family member or friend?: No Do you have trouble with day-to-day activities such as bathing, preparing meals, shopping, managing finances, etc.?: No Are you currently unemployed and looking for a job?: No Are you interested in more education?: Yes Please select the resources that you would like help with: None Currently or been in a relationship where the following occur: No concerns reported THRIVE Score: 0 AUDIT C Alcohol Use Questionnaire (AUDIT-C) 1. How often do you have a drink containing alcohol?: Never Total Score: 0 Score Reviewed/Action Taken: Yes SANDY-7 AMB Questionnaire SANDY-7 Date SANDY - 7 assessed: 03/18/24 Feeling nervous, anxious, or on edge: 0 = Not at all Not being able to stop or control worryin = Not at all Worrying too much about different things: 0 = Not at all Trouble relaxin = Not at all Being so restless that it is hard to sit still: 0 = Not at all Becoming easily annoyed or irritable: 0 = Not at all Feeling afraid as if something awful might happen: 0 = Not at all Total SANDY-7 score (0-4 normal; 5-9 mild; 10-14 moderate; 15-21 severe): 0 Source: Developed by Drs. Stephen Moscoso, Agatha Ibrahim, Lars Mitchell and colleagues, with an educational renita from [employer]. SANDY-7 Assessment Billing SANDY-7 Assessment Tool: SANDY-7 Assessment 26168 Review of Systems Const Details: Const Denies chills, Denies fatigue, Denies fever(s), Denies headache(s) and Denies weakness ENT Denies dizziness and Denies headache(s) Card Denies chest pain, Denies lightheadedness, Denies dyspnea and Denies other (Palpitations) Resp Denies cough, Denies dyspnea, Denies wheezing and Denies other ( shortness of breath) GI Denies abdominal pain, Denies melena, Denies hematochezia, Denies change in bowel habits, Denies dyspepsia and Denies nausea Denies hematuria and Denies dysuria Musc Denies abnormal gait, Denies myalgias, Denies arthralgias, Denies numbness and Denies tingling Skin/Breast Denies rash, Denies unusual bruising and Denies wounds Neuro Denies abnormal gait, Denies dizziness, Denies headache(s), Denies memory loss, Denies numbness, Denies Sensory deficit (Neuro), Denies tingling and Denies weakness Psych Denies anxiety, Denies depression, Denies memory loss Endo Denies cold intolerance, Denies fatigue, Denies heat intolerance, Denies polydipsia and Denies polyuria Aller/Immun Denies wheezing Physical exam (Primary Care) Vital Signs: Last Vital Signs Temp 98.5 F 03/18/24 15:00 Pulse 76 03/18/24 15:00 Resp 16 03/18/24 15:00 BP 103/59 L 03/18/24 15:00 Pulse Ox 97 03/18/24 15:00 Oxygen Delivery Method Room Air 03/18/24 15:00 BMI result Body Mass Index 29.4 Tobacco/Smoking Status: Tobacco use Status Tobacco use date assessed 03/18/24 03/18/24 15:04 Patient Tobacco Use Status Never used Tobacco 03/18/24 14:57 e-Cigarette/Vaping Use Never Used 03/18/24 14:57 Depression Screening Interpretation: Negative Thrive Assessment: Date of Thrive Assessment Date Thrive assessed 01/08/24 03/18/24 14:57 Currently or been in a relationship where the following occur: No concerns reported Const Other: General: no acute distress and well developed Nutritional Appearance: well nourished Orientation/consciousness: patient oriented x3 HENMT Head: Yes normocephalic and Yes atraumatic Eyes General: appearance normal, both eyes and all related structures Pupils: Equal, round and reactive pupils present EOM: EOMs intact bilaterally Resp Effort & Inspection: normal respiratory effort Auscultation: clear to auscultation bilaterally Cardio Rate: regular rate Rhythm: regular rhythm Heart sounds: S1 normal heart sound present, S2 normal heart sound present, no gallops, no murmurs and no rubs GI Palpation (GI): No Abdominal aortic bruit present, Soft to palpation, nontender, No hepatosplenomegaly present and No Rebound tenderness present Auscultation: normal bowel sounds Three incisional of wounds to the abdomen are intact, with no overt infection General: Yes no CVA tenderness Back/Spine/Pelvis Back: no CVA tenderness Cervical Spine: cervical ROM normal and No Cervical spine tenderness Thoracic/Lumbar Spine: thoraco-lumbar ROM normal, No pain with thoraco-lumbar ROM, No thoracic spinal tenderness and No lumbar spinal tenderness Extrem General: Yes normal to inspection, No edema and No calf tenderness Skin General: warm and dry. Normal skin color. Normal skin turgor Neuro General: patient oriented x3, gait normal and no focal neuro deficit Cranial nerves: Yes Equal, round and reactive pupils present Cognition (Neuro): normal cognition Gait exam (Neuro): Normal gait present Sensory Exam: No Sensory deficit (Neuro) Psych Appearance: grossly normal Affect: normal affect Attitude: cooperative Thought process: Normal thought process present Coding Level of Care Code TCM Mod MDM <= 7 Days Diagnoses Symptomatic cholelithiasis K80.20 S/P cholecystectomy Z90.49 Leukocytosis D72.829 Additional Codes SANDY-7 Assessment Billing - SANDY-7 Assessment Tool: SANDY-7 Assessment 05406 ([id number]) PHQ-9 - 72368 - PHQ-9 Billing: Yes ([id number]) Assessment & Plan Assessment & Plan (1) Symptomatic cholelithiasis: Code(s): K80.20 - Calculus of gallbladder without cholecystitis without obstruction Category: Medical Plan: Status post laparoscopic cholecystectomy. He is doing very well postoperatively. All incisions are well healed. He is followed by Dr. Doug Vargas, general surgery, and was seen today. Encouraged to continue current treatment and avoid lifting anything more than 20 lb for at least [address] Vargas. Follow-up with Dr. Vargas or PCP as needed. (2) S/P cholecystectomy: Code(s): Z90.49 - Acquired absence of other specified parts of digestive tract Category: Medical Plan: Plan as above. (3) Leukocytosis: Code(s): D72.829 - Elevated white blood cell count, unspecified Category: Medical Plan: His recent WBC on 03/12/2024 was elevated, 17.7. Will recheck CBC and make changes as needed. Advised to get fasting lab work done 2-3 days before his next visit. Follow-up for an extended physical exam. Verbalized understanding and agreed with the plan. Orders: Orders Complete Blood Count Auto Diff Today D72.829 - Elevated white blood cell count, unspecified
[2024-03-18 15:00] VITALS: BP 103/59; PULSE 76; RESP 16; TEMP 36.9; O2SAT 97; BMI 29.4
== END 2024-03-18 15:31 | disposition home or self-care (01) ==
PROVIDERS: PCP Nurse Practitioner Family; Visit Provider Nurse Practitioner Family
DX: K80.20 Calculus of gallbladder without cholecystitis without obstruction (principal); Z90.49 Acquired absence of other specified parts of digestive tract; D72.829 Elevated white blood cell count, unspecified